=== PATIENT | female | born 1935 | race Caucasian/White ===

== ENCOUNTER → 2017-06-26 | Outpatient (CLI) | payer MEDICARE ==
--- NOTE | 2017-06-27 13:09 | BD ---
EXAMINATION TYPE: MG DEXA axial skeleton. DATE OF EXAM: 06/26/2017 COMPARISON: 2012 CLINICAL HISTORY: post menopausal Height: 4'11 06/19 Weight: 183 FRAX RISK QUESTIONS: Alcohol (3 or more units per day): no Family History (Parent hip fracture): no Glucocorticoids (More than 3mos): no (Ex: prednisone, prednisolone, methylprednisolone, dexamethasone, and hydrocortisone). History of Fracture in Adulthood: no Secondary Osteoporosis: 1. Type 1 Diabetes: no 2. Hyperthyroidism: no 3. Menopause before 45: yes 4. Malnutrition: no 5. 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 Bone mineral density as measured about the Lumbar spine is: ----- L1-L4(G/cm2): 1.276 T Score Values are as follows: ----- L2: 0.2 ----- L3: 1.7 ----- L4: 1.6 ----- L1-L4: 0.8 Bone mineral density has: Increased 9.5% since study of: 01/15/2013 Bone mineral density about the R hip (g/cm2): 0.811 Bone mineral density about the L hip (g/cm2): 0.895 T Score values are as follows: -----R Neck: -1.6 -----L Neck: -1.0 -----R Total:-0.7 -----L Total:0.2 Bone mineral density has: Increased 1.7% since study of: 01/15/2013 IMPRESSION: No evidence for osteoporosis or osteopenia. NOTE: T-SCORE=SD OF THE YOUNG ADULT MEAN.
== END ==
LOC: RADBDWWP 16:10
PROVIDERS: ATTEND Family Medicine
DX: Z78.0 Asymptomatic menopausal state (principal)
CPT/HCPCS: 77080

== ENCOUNTER → 2018-02-11 | Outpatient (CLI) | payer MEDICARE ==
--- NOTE | 2018-02-12 11:26 | CT ---
EXAMINATION TYPE: CT abdomen pelvis wo/w con DATE OF EXAM: 02/11/2018 COMPARISON: None INDICATION: Generalized pain DLP: 2155.5 mGycm, Automated exposure control for dose reduction was used. CONTRAST: 100 mL of Isovue 300. Study performed with Oral Contrast TECHNIQUE: Axial images were obtained from above the diaphragm to the pubic rami in the axial plane a t 5 mm thick sections. Reconstructed images are reviewed on the computer in the coronal plane. FINDINGS: Limited CT sections are obtained the lung bases. The lung bases are clear. There is a moderate size hiatal hernia contains contrast. CT ABDOMEN: Liver: Normal Spleen: Normal Pancreas: Moderately atrophic Adrenal glands: The adrenal glands are normal. Gallbladder: Surgically absent Kidneys: No masses are evident. No hydronephrosis is present. No cysts are present. Delayed images were obtained through the kidneys, which remain unremarkable. No renal stones are evident. Aorta: Vascular calcification is within the aorta. Inferior vena cava: Normal. Left renal vein is retroaortic. CT PELVIS: Loops of bowel within the abdomen and pelvis are normal. There are a few scattered diverticuli with in the colon. No acute diverticulitis is evident. There are loops of bowel which are incompletely di stended or lack oral contrast limiting their evaluation. Appendix: Normal as visualized. Urinary bladder: Normal. Genitourinary structures: Uterus is normal. Adnexal regions are clear. No free fluid is within the pe lvis. Osseous structures: No suspicious lytic or sclerotic lesions. Some facet hypertrophy is in the lower lumbar spine IMPRESSIONS: 1. Diverticulosis without acute diverticulitis. 2. Moderate size hiatal hernia.
== END | disposition home or self-care (01) ==
LOC: RADCTMAIN 17:05
PROVIDERS: ATTEND Family Medicine
DX: K57.30 Diverticulosis of large intestine without perforation or abscess without bleeding (principal); K44.9 Diaphragmatic hernia without obstruction or gangrene
CPT/HCPCS: 82565; 84520; 74178; 36415; Q9967

== ENCOUNTER → 2018-03-15 | Outpatient (CLI) | payer MEDICARE ==
--- NOTE | 2018-03-15 15:55 | US ---
EXAMINATION TYPE: US kidneys/renal and bladder DATE OF EXAM: COMPARISON: None CLINICAL HISTORY: N18.3 CKD. CKD--- Abnormal labs. No pain. EXAM MEASUREMENTS: Right Kidney: 10.7 x 3.8 x 4.6 cm Left Kidney: 9.0 x 4.9 x 5.7 cm Right Kidney: No hydronephrosis or masses seen Left Kidney: Cortical thinning. Appears smaller in size compared to contralateral kidney. Prominent pyramids. Bladder: distended, wnl as visualized Bilateral Jets seen IMPRESSION: 1. No suspicious acute changes renal ultrasound. 2. There appears to be some chronic changes within the left kidney with thinning of the cortex.
== END ==
LOC: RADUSWWP 12:42
PROVIDERS: ATTEND Internal Medicine
DX: N18.3 Chronic kidney disease, stage 3 (moderate) (principal)
CPT/HCPCS: 76770

== ENCOUNTER 2018-07-31 12:41 | Emergency (ER) | payer MEDICARE ==
[2018-07-31 13:03] LABS: Glucose,Whole Blood 234 mg/dL (75-99)
[2018-07-31] MEDS ORDERED: SODIUM CHLORIDE 0.9% 1,000 ML IV STA ×2 (13:19→14:54)
--- NOTE | 2018-07-31 14:18 | CT ---
EXAMINATION TYPE: CT brain wo con DATE OF EXAM: 07/31/2018 COMPARISON: None HISTORY: 82-year-old female weakness, Dizziness TECHNIQUE: Examination was done in axial plane without intravenous contrast. Coronal and sagittal r econstructions performed. CT DLP: 1056.4 mGycm Automated exposure control for dose reduction was used. FINDINGS: There is no evidence of acute intracranial hemorrhage, acute ischemic changes, mass, mass-effect, or extra-axial fluid collection. There is no effacement of cerebral sulci or basal subarachnoid cister ns. There is no hydrocephalus. There is no midline shift. Correa-white matter distinction is preserv ed. Leftward nasal septal deviation. Orbits and globes appear intact. Sinuses and mastoid air cells well pneumatized. Apical scarring calcifications within the bilateral carotid siphons. Benign basal ganglionic calcifications. Mild generalized supratentorial volume loss. IMPRESSION: Mild age-related atrophy. No acute intracranial abnormality seen.
--- NOTE | 2018-07-31 14:21 | XR ---
EXAMINATION TYPE: XR chest 2V DATE OF EXAM: 07/31/2018 COMPARISON: None HISTORY: 82-year-old female with weakness after fall TECHNIQUE: AP and lateral views FINDINGS: Heart upper limits of normal in size. Hazy densities project over the lungs from large patient body h abitus. No christofer consolidation, pneumothorax, or pleural effusion. IMPRESSION: Borderline heart size. No definite acute process.
[2018-07-31 14:33] LABS: Basophils % (A) 0 %; Eosinophils # (A) 0.1 k/uL (0-0.7); Eosinophils % (A) 2 %; HCT 36.3 % (34.0-46.0); HGB 12.1 gm/dL (11.4-16.0); Lymphocytes # (A) 1.2 k/uL (1.0-4.8); Lymphocytes % (A) 17 %; MCH 30.5 pg (25.0-35.0); MCHC 33.3 g/dL (31.0-37.0); MCV 91.6 fL (80.0-100.0); Mean Platelet Volume 7.7; Monocytes # (A) 0.3 k/uL (0-1.0); Monocytes % (A) 5 %; Neutrophils # (A) 4.9 k/uL (1.3-7.7); Neutrophils % (A) 74 %; Platelet Count 194 k/uL (150-450); RBC 3.97 m/uL (3.80-5.40); RDW 13.2 % (11.5-15.5); WBC 6.7 k/uL (3.8-10.6)
[2018-07-31 14:43] LABS: Calcium 9.7 mg/dL (8.4-10.2); Magnesium 1.3 mg/dL (1.6-2.3); Potassium 4.3 mmol/L (3.5-5.1); Total Bilirubin 0.9 mg/dL (0.2-1.3); Total Protein 6.6 g/dL (6.3-8.2)
[2018-07-31 14:48] LABS: INR 0.9 (<1.2); Partial Thromboplastin Time 22.9 sec (22.0-30.0); Prothrombin Time 10.2 sec (9.0-12.0)
[2018-07-31 14:51] LABS: Appearance,Urine Clear (Clear); Bilirubin,Urine Negative (Negative); Blood,Urine Negative (Negative); Color,Urine Yellow; Glucose,Urine (UA) Negative (Negative); Ketones,Urine Negative (Negative); Leukocyte Esterase,Urine Negative (Negative); Nitrite,Urine Negative (Negative); Protein,Urine Negative (Negative); Specific Gravity,Urine 1.011 (1.001-1.035)
--- NOTE | 2018-07-31 16:37 | ED ---
Weakness HPI - General Chief complaint: Weakness Stated complaint: fall,weak Time Seen by Provider: 07/31/18 13:02 Source: patient Mode of arrival: wheelchair Limitations: physical limitation - History of Present Illness Initial comments: Patient presents with generalized weakness. Nothing makes her symptoms better or worse. She has taken no medicines for this. She was not doing anything when she began to feel this way. She denies any belly or back pain. She has no chest pain or pressure. She has no nausea or vomiting. She has no trouble walking. - Related Data Home Medications Medication Instructions Recorded Confirmed Aspirin EC [Ecotrin Low Dose] 81 mg PO DAILY 07/31/18 07/31/18 Atorvastatin [Lipitor] 20 mg PO HS 07/31/18 07/31/18 Calcium Carbonate [Tums] 500 mg PO DAILY 07/31/18 07/31/18 Cholecalciferol [Vitamin D3] 1,000 unit PO DAILY 07/31/18 07/31/18 Febuxostat [Uloric] 40 mg PO DAILY 07/31/18 07/31/18 L.acidoph,Paracasei, B.lactis 1 cap PO DAILY 07/31/18 07/31/18 [Probiotic] Loperamide HCl [Imodium A-D] 2 - 4 mg PO DAILY PRN 07/31/18 07/31/18 Metoprolol Succinate (ER) [Toprol 50 mg PO DAILY 07/31/18 07/31/18 Xl] Multivit-Min36/Iron/Folic Acid 1 tab PO W/SUPPER 07/31/18 07/31/18 [Geritol Complete Tablet] Olmesartan Medoxomil [Benicar] 40 mg PO DAILY 07/31/18 07/31/18 Omeprazole/Sodium Bicarbonate 1 cap PO DAILY 07/31/18 07/31/18 [Zegerid 20 mg Capsule] Pioglitazone [Actos] 30 mg PO DAILY 07/31/18 07/31/18 Sertraline [Zoloft] 50 mg PO DAILY 07/31/18 07/31/18 Spironolact/Hydrochlorothiazid 1 tab PO DAILY 07/31/18 07/31/18 [Aldactazide 25-25 MG] amLODIPine [Norvasc] 5 mg PO DAILY 07/31/18 07/31/18 buPROPion XL [Wellbutrin Xl] 150 mg PO DAILY 07/31/18 07/31/18 cloNIDine 0.2 MG/24HR PATCH 1 patch TRANSDERM MO 07/31/18 07/31/18 [Catapres-TTS] glipiZIDE [Glucotrol] 10 mg PO AC-BID 07/31/18 07/31/18 metFORMIN HCL ER [Glucophage Xr] 500 mg PO BID 07/31/18 07/31/18 Allergies Allergy/AdvReac Type Severity Reaction Status Date / Time Iodine and Iodide Containing Allergy Swelling Verified 07/31/18 13:11 Produc hydrocodone AdvReac Nausea & Verified 07/31/18 13:11 Vomiting/HEADACHE naproxen AdvReac Nausea & Verified 07/31/18 13:11 Vomiting Review of Systems ROS Statement: Those systems with pertinent positive or pertinent negative responses have been documented in the HPI. ROS Other: All systems not noted in ROS Statement are negative. Past Medical History Past Medical History: Coronary Artery Disease (CAD), Diabetes Mellitus, GERD/ Reflux, Hyperlipidemia, Hypertension Additional Past Medical History / Comment(s): migraines History of Any Multi-Drug Resistant Organisms: None Reported Past Surgical History: Cholecystectomy Additional Past Surgical History / Comment(s): colon resection Past Psychological History: Depression Smoking Status: Never smoker Past Alcohol Use History: None Reported Past Drug Use History: None Reported General Exam Limitations: physical limitation General appearance: alert, in no apparent distress Head exam: Present: atraumatic, normocephalic, normal inspection Eye exam: Present: normal appearance, PERRL, EOMI. Absent: scleral icterus, conjunctival injection, periorbital swelling ENT exam: Present: normal exam, mucous membranes moist Neck exam: Present: normal inspection. Absent: tenderness, meningismus, lymphadenopathy Respiratory exam: Present: normal lung sounds bilaterally. Absent: respiratory distress, wheezes, rales, rhonchi, stridor Cardiovascular Exam: Present: regular rate, normal rhythm, normal heart sounds. Absent: systolic murmur, diastolic murmur, rubs, gallop, clicks GI/Abdominal exam: Present: soft, normal bowel sounds. Absent: distended, tenderness, guarding, rebound, rigid Extremities exam: Present: normal inspection, full ROM, normal capillary refill. Absent: tenderness, pedal edema, joint swelling, calf tenderness Back exam: Present: normal inspection Neurological exam: Present: alert, oriented X3, CN II-XII intact Psychiatric exam: Present: normal affect, normal mood Skin exam: Present: warm, dry, intact, normal color. Absent: rash Course Vital Signs 07/31/18 07/31/18 12:43 13:55 Temperature 99.0 F Pulse Rate 85 79 Respiratory 18 16 Rate Blood Pressure 146/81 162/70 O2 Sat by Pulse 95 95 Oximetry EKG Findings - EKG Comments: EKG Findings:: Twelve-lead EKG shows ventricular rate 80 bpm, normal MN interval and QRS complexes, no ST elevation or depression, interpreted by me as normal sinus rhythm. Medical Decision Making - Medical Decision Making Patient presents with weakness. Her BUN/creatinine and creatinine are slightly elevated. I gave her an IV fluid bolus. She is feeling much better. The rest of her labs are normal. Her imaging is all normal. Patient does not want to stay in the hospital. I can find no evidence of an emergency condition. She is going to follow-up with her own primary care doctor as an outpatient. - Lab Data Result diagrams: 07/31/18 13:50 07/31/18 13:50 Lab Results 07/31/18 07/31/18 07/31/18 Range/Units 13:01 13:50 13:50 WBC 6.7 (3.8-10.6) k/uL RBC 3.97 (3.80-5.40) m/uL Hgb 12.1 (11.4-16.0) gm/dL Hct 36.3 (34.0-46.0) % MCV 91.6 (80.0-100.0) fL MCH 30.5 (25.0-35.0) pg MCHC 33.3 (31.0-37.0) g/dL RDW 13.2 (11.5-15.5) % Plt Count 194 (150-450) k/uL Neutrophils % 74 % Lymphocytes % 17 % Monocytes % 5 % Eosinophils % 2 % Basophils % 0 % Neutrophils # 4.9 (1.3-7.7) k/uL Lymphocytes # 1.2 (1.0-4.8) k/uL Monocytes # 0.3 (0-1.0) k/uL Eosinophils # 0.1 (0-0.7) k/uL Basophils # 0.0 (0-0.2) k/uL PT (9.0-12.0) sec INR (<1.2) APTT (22.0-30.0) sec Sodium 139 (137-145) mmol/L Potassium 4.3 (3.5-5.1) mmol/L Chloride 100 (98-107) mmol/L Carbon Dioxide 27 (22-30) mmol/L Anion Gap 12 mmol/L BUN 23 H (7-17) mg/dL Creatinine 1.05 H (0.52-1.04) mg/dL Est GFR (CKD-EPI)AfAm 58 (>60 ml/min/1.73 sqM) Est GFR (CKD-EPI)NonAf 50 (>60 ml/min/1.73 sqM) Glucose 233 H (74-99) mg/dL POC Glucose (mg/dL) 234 H (75-99) mg/dL POC Glu Hydrometeorological Technician ID Lakisha Zamarripa Plasma Lactic Acid Nikolas (0.7-2.0) mmol/L Calcium 9.7 (8.4-10.2) mg/dL Magnesium 1.3 L (1.6-2.3) mg/dL Total Bilirubin 0.9 (0.2-1.3) mg/dL AST 37 H (14-36) U/L ALT 35 (9-52) U/L Alkaline Phosphatase 48 (38-126) U/L Troponin I (0.000-0.034) ng/mL NT-Pro-B Natriuret Pep pg/mL Total Protein 6.6 (6.3-8.2) g/dL Albumin 4.0 (3.5-5.0) g/dL TSH 2.300 (0.465-4.680) mIU/L Urine Color Urine Appearance (Clear) Urine pH (5.0-8.0) Ur Specific [place] (1.001-1.035) Urine Protein (Negative) Urine Glucose (UA) (Negative) Urine Ketones (Negative) Urine Blood (Negative) Urine Nitrite (Negative) Urine Bilirubin (Negative) Urine Urobilinogen (<2.0) mg/dL Ur Leukocyte Esterase (Negative) 07/31/18 07/31/18 07/31/18 Range/Units 13:50 13:50 13:50 WBC (3.8-10.6) k/uL RBC (3.80-5.40) m/uL Hgb (11.4-16.0) gm/dL Hct (34.0-46.0) % MCV (80.0-100.0) fL MCH (25.0-35.0) pg MCHC (31.0-37.0) g/dL RDW (11.5-15.5) % Plt Count (150-450) k/uL Neutrophils % % Lymphocytes % % Monocytes % % Eosinophils % % Basophils % % Neutrophils # (1.3-7.7) k/uL Lymphocytes # (1.0-4.8) k/uL Monocytes # (0-1.0) k/uL Eosinophils # (0-0.7) k/uL Basophils # (0-0.2) k/uL PT 10.2 (9.0-12.0) sec INR 0.9 (<1.2) APTT 22.9 (22.0-30.0) sec Sodium (137-145) mmol/L Potassium (3.5-5.1) mmol/L Chloride (98-107) mmol/L Carbon Dioxide (22-30) mmol/L Anion Gap mmol/L BUN (7-17) mg/dL Creatinine (0.52-1.04) mg/dL Est GFR (CKD-EPI)AfAm (>60 ml/min/1.73 sqM) Est GFR (CKD-EPI)NonAf (>60 ml/min/1.73 sqM) Glucose (74-99) mg/dL POC Glucose (mg/dL) (75-99) mg/dL POC Glu Hydrometeorological Technician ID Plasma Lactic Acid Nikolas 3.4 H* (0.7-2.0) mmol/L Calcium (8.4-10.2) mg/dL Magnesium (1.6-2.3) mg/dL Total Bilirubin (0.2-1.3) mg/dL AST (14-36) U/L ALT (9-52) U/L Alkaline Phosphatase (38-126) U/L Troponin I (0.000-0.034) ng/mL NT-Pro-B Natriuret Pep 231 pg/mL Total Protein (6.3-8.2) g/dL Albumin (3.5-5.0) g/dL TSH (0.465-4.680) mIU/L Urine Color Urine Appearance (Clear) Urine pH (5.0-8.0) Ur Specific [place] (1.001-1.035) Urine Protein (Negative) Urine Glucose (UA) (Negative) Urine Ketones (Negative) Urine Blood (Negative) Urine Nitrite (Negative) Urine Bilirubin (Negative) Urine Urobilinogen (<2.0) mg/dL Ur Leukocyte Esterase (Negative) 07/31/18 07/31/18 Range/Units 13:50 14:32 WBC (3.8-10.6) k/uL RBC (3.80-5.40) m/uL Hgb (11.4-16.0) gm/dL Hct (34.0-46.0) % MCV (80.0-100.0) fL MCH (25.0-35.0) pg MCHC (31.0-37.0) g/dL RDW (11.5-15.5) % Plt Count (150-450) k/uL Neutrophils % % Lymphocytes % % Monocytes % % Eosinophils % % Basophils % % Neutrophils # (1.3-7.7) k/uL Lymphocytes # (1.0-4.8) k/uL Monocytes # (0-1.0) k/uL Eosinophils # (0-0.7) k/uL Basophils # (0-0.2) k/uL PT (9.0-12.0) sec INR (<1.2) APTT (22.0-30.0) sec Sodium (137-145) mmol/L Potassium (3.5-5.1) mmol/L Chloride (98-107) mmol/L Carbon Dioxide (22-30) mmol/L Anion Gap mmol/L BUN (7-17) mg/dL Creatinine (0.52-1.04) mg/dL Est GFR (CKD-EPI)AfAm (>60 ml/min/1.73 sqM) Est GFR (CKD-EPI)NonAf (>60 ml/min/1.73 sqM) Glucose (74-99) mg/dL POC Glucose (mg/dL) (75-99) mg/dL POC Glu Hydrometeorological Technician ID Plasma Lactic Acid Nikolas (0.7-2.0) mmol/L Calcium (8.4-10.2) mg/dL Magnesium (1.6-2.3) mg/dL Total Bilirubin (0.2-1.3) mg/dL AST (14-36) U/L ALT (9-52) U/L Alkaline Phosphatase (38-126) U/L Troponin I <0.012 (0.000-0.034) ng/mL NT-Pro-B Natriuret Pep pg/mL Total Protein (6.3-8.2) g/dL Albumin (3.5-5.0) g/dL TSH (0.465-4.680) mIU/L Urine Color Yellow Urine Appearance Clear (Clear) Urine pH 7.0 (5.0-8.0) Ur Specific [place] 1.011 (1.001-1.035) Urine Protein Negative (Negative) Urine Glucose (UA) Negative (Negative) Urine Ketones Negative (Negative) Urine Blood Negative (Negative) Urine Nitrite Negative (Negative) Urine Bilirubin Negative (Negative) Urine Urobilinogen 3.0 (<2.0) mg/dL Ur Leukocyte Esterase Negative (Negative) Disposition Clinical Impression: Dehydration Disposition: HOME SELF-CARE Condition: Good Instructions (If sedation given, give patient instructions): Dehydration (ED) Is patient prescribed a controlled substance at d/c from ED?: No Referrals: Tad Patel MD [Primary Care Provider] - 1-2 days
[2018-07-31 16:57] VITALS: BP 158/62; PULSE 62; RESP 18; TEMP 98.6
== END 2018-07-31 16:57 | disposition home or self-care (01) ==
LOC: EC 12:41
DX: E86.0 Dehydration (principal); R79.89 Other specified abnormal findings of blood chemistry; R53.1 Weakness; E78.5 Hyperlipidemia, unspecified; I10 Essential (primary) hypertension; I25.10 Atherosclerotic heart disease of native coronary artery without angina pectoris; E11.9 Type 2 diabetes mellitus without complications; K21.9 Gastro-esophageal reflux disease without esophagitis; F32.9 Major depressive disorder, single episode, unspecified; Z88.5 Allergy status to narcotic agent; Z88.6 Allergy status to analgesic agent; Z88.8 Allergy status to other drugs, medicaments and biological substances; Z79.82 Long term (current) use of aspirin; Z79.84 Long term (current) use of oral hypoglycemic drugs; Z79.899 Other long term (current) drug therapy; Z90.49 Acquired absence of other specified parts of digestive tract
CPT/HCPCS: 36415; 70450; 71046; 80053; 81003; 83605; 83735; 83880; 84443; 84484; 85025; 85610; 85730; 93005; 96360; 96361; 99285

== ENCOUNTER → 2018-09-24 | Outpatient (CLI) | payer MEDICARE ==
--- NOTE | 2018-09-24 22:10 | MR ---
EXAMINATION TYPE: MR angio head wo con DATE OF EXAM: 09/24/2018 COMPARISON: CT brain July 31, 2018 HISTORY: Syncope, recent falls TECHNIQUE: Time of flight images focusing on the [place] of [place] were performed without contrast.. 2-D and 3-D postprocessing imaging is performed on the MRI scanner. FINDINGS: There is dominant right vertebral artery. Vertebral arteries are patent to basilar junction . There is small caliber but patent right posterior indicating artery. There is similar small caliber left posterior communicating artery. No significant stenosis or aneurysmal change is seen. Images of the anterior circulation show patent anterior communicating artery. There is no significant focal stenosis or aneurysmal change seen. IMPRESSION: No aneurysmal change at the level of the [place] of [place].
--- NOTE | 2018-09-24 22:13 | MR ---
EXAMINATION TYPE: MR brain wo con DATE OF EXAM: 09/24/2018 COMPARISON: CT brain July 31, 2018. HISTORY: Syncope, recent falls TECHNIQUE: Multiplanar, multisequence imaging of the brain and brainstem is performed without IV cont rast. FINDINGS: Diffusion weighted images demonstrate no evidence of a recent infarct or other diffusion abnormality. There is no worrisome extra-axial fluid collection. There is diffuse ventricular and sulcal prominenc e. There are scattered multifocal areas of T2 hyperintensity seen throughout the deep and periventric ular white matter. Lesions are nonspecific in appearance and distribution most likely an basis of chr onic the proximal vessel ischemic change in patient this age. Midline structures demonstrate normal morphology. The craniocervical junction appears within normal limits. Normal vascular flow voids are present. There is 8 mm mucous retention cyst or polyp in the a nterior lateral right sphenoid sinus otherwise paranasal sinuses are clear. Nasal septum is slightly deviated to left of midline. Both globes are intact. No suspicious opacification mastoid air cells is present. IMPRESSION: There is moderate diffuse cerebral atrophy and chronic small vessel ischemic change ident ified seen better on MRI versus recent CT.
== END | disposition home or self-care (01) ==
LOC: RADMRIMAIN 15:43
PROVIDERS: ATTEND Psychiatry & Neurology Neurology
DX: R55 Syncope and collapse (principal)
CPT/HCPCS: 70544; 70551

== ENCOUNTER → 2020-06-25 | Outpatient (CLI) | payer MEDICARE ==
--- NOTE | 2020-06-25 15:39 | MR ---
EXAMINATION TYPE: MR iac wo/w con DATE OF EXAM: 06/25/2020 COMPARISON: Prior MRI brain September 24, 2018. CT brain July 31, 2018 HISTORY: Balance issues. TECHNIQUE: Multiplanar, multisequence images of the brain and brainstem is performed without and with IV contras t, utilizing 7.5 mL intravenous Gadavist . Acoustic nerve disorder protocol. FINDINGS: Diffusion weighted images demonstrate no evidence of a recent infarct or other diffusion ab normality. There is no worrisome extra-axial fluid collection. Fairly moderate diffuse ventricular a nd sulcal prominence. Scattered focal and confluent areas of T2 hyperintensity are seen throughout th e superficial, deep, and periventricular white matter. Pontine involvement redemonstrated. Lesions ar e nonspecific in appearance and distribution. Nasal septum redemonstrated deviated to left of midline . Midline structures demonstrate normal morphology. The craniocervical junction appears within normal limits. Post contrast images demonstrate no abnormal enhancement. The dural venous sinuses appear pa tent. Small mucous retention cyst or polyp in the right anterior sphenoid sinus axial image 9 redemon strated. The visualized sinuses are otherwise clear and the globes are intact. No suspicious fluid signal mastoid air cells bilaterally. The vestibulocochlear complexes are symmetr ic and felt within normal limits. There is no suspicious enhancing mass identified bilaterally. IMPRESSION: Moderate diffuse cerebral atrophy and moderate to advanced chronic small vessel ischemic changes redemonstrated. No significant change from prior MRI. No suspicious cerebellopontine angle fi nding to account for patient's symptoms
== END | disposition home or self-care (01) ==
LOC: RADMRIMAIN 14:26
PROVIDERS: ATTEND Otolaryngology
DX: I67.82 Cerebral ischemia (principal); G31.1 Senile degeneration of brain, not elsewhere classified
CPT/HCPCS: 70553; A9585

== ENCOUNTER → 2020-07-14 | Outpatient (CLI) | payer MEDICARE ==
--- NOTE | 2020-07-14 14:39 | BD ---
EXAMINATION TYPE: Axial Bone Density DATE OF EXAM: 07/14/2020 COMPARISON: NONE CLINICAL HISTORY: Height: 5 FT 1 IN Weight: 174 FRAX RISK QUESTIONS: Alcohol (3 or more units per day): NO Family History (Parent hip fracture): NO Glucocorticoids (More than 3mos): NO (Ex: prednisone, prednisolone, methylprednisolone, dexamethasone, and hydrocortisone). History of Fracture in Adulthood: NO Secondary Osteoporosis: 1. Type 1 Diabetes: NO 2. Hyperthyroidism: NODULES 3. Menopause before 45: YES 4. Malnutrition: NO 5. Chronic liver disease: NO Rheumatoid Arthritis: YES Current Tobacco Use: NO RISK FACTORS HISTORY OF: Family History of Osteoporosis: NO Active: NO Diet low in dairy products/other sources of calcium: NO Postmenopausal woman: EARLY 40'S Take estrogen and/or progesterone medications: NONE Lost more than 2 inches in height since high school: YES Frequent falls: YES Poor Health: FAIR MEDICATIONS: Additional Medications: WELLBUTRIN, BLOOD PRESSURE MEDS, TYPE 2 DIABETIC MEDS, ACTOSE, HEART PATCH, Additional History: COLON RESSECTION, EXAM MEASUREMENTS: Bone mineral densitometry was performed using the [employer] System. Bone mineral density as measured about the Lumbar spine is: ----- L1-L4(G/cm2): 1.284 T Score Values are as follows: ----- L2: 0.0 ----- L3: 1.8 ----- L4: 1.2 ----- L1-L4: 0.9 Bone mineral density has: DECREASED -1.8 % since study of: 2018 Bone mineral density about the R hip (g/cm2): 0.771 Bone mineral density about the L hip (g/cm2): 0.831 T Score values are as follows: -----R Neck: -1.9 -----L Neck: -1.5 -----R Total: -1.4 -----L Total: -0.5 Bone mineral density has: DECREASED -9.3 % since study of: 2018 IMPRESSION: Osteopenia (T Score between -2.5 and -1). There is slightly increased risk of fracture and the patient may be considered for treatment. Re-Screen 2-5 years. NOTE: T-SCORE=SD OF THE YOUNG ADULT MEAN.
== END | disposition home or self-care (01) ==
LOC: RADBDWWP 13:55
PROVIDERS: ATTEND Family Medicine
DX: M85.80 Other specified disorders of bone density and structure, unspecified site (principal); Z78.0 Asymptomatic menopausal state
CPT/HCPCS: 77080

== ENCOUNTER 2020-08-14 10:40 | Emergency (ER) | payer MEDICARE ==
[2020-08-14 10:45] VITALS: BP 160/69; PULSE 54; RESP 16; TEMP 98
--- NOTE | 2020-08-14 11:03 | ED ---
Fall HPI - General Chief Complaint: Fall Stated Complaint: Fall/ankle/leg injury Time Seen by Provider: 08/14/20 10:46 Source: patient, RN notes reviewed Mode of arrival: wheelchair Limitations: no limitations - History of Present Illness Initial Comments: 10-year-old female presents emergency Department chief complaint of right leg pain. Patient states she's had a few falls last few days states that it's always when she tries hematuria, she has difficulty lifting her leg so she slipped. Patient states is chronic for her. Patient went of right knee pain, right ankle pain patient states that she sprain old walking boot which is help. No paresthesias no head injury no loss conscious. Patient does take an aspirin no other blood thinners. - Related Data Home Medications Medication Instructions Recorded Confirmed Aspirin EC [Ecotrin Low Dose] 81 mg PO DAILY 07/31/18 07/31/18 Atorvastatin [Lipitor] 20 mg PO HS 07/31/18 07/31/18 Calcium Carbonate [Tums] 500 mg PO DAILY 07/31/18 07/31/18 Cholecalciferol [Vitamin D3] 1,000 unit PO DAILY 07/31/18 07/31/18 Febuxostat [Uloric] 40 mg PO DAILY 07/31/18 07/31/18 L.acidoph,Paracasei, B.lactis 1 cap PO DAILY 07/31/18 07/31/18 [Probiotic] Loperamide HCl [Imodium A-D] 2 - 4 mg PO DAILY PRN 07/31/18 07/31/18 Metoprolol Succinate (ER) [Toprol 50 mg PO DAILY 07/31/18 07/31/18 Xl] Multivit-Min36/Iron/Folic Acid 1 tab PO W/SUPPER 07/31/18 07/31/18 [Geritol Complete Tablet] Olmesartan Medoxomil [Benicar] 40 mg PO DAILY 07/31/18 07/31/18 Omeprazole/Sodium Bicarbonate 1 cap PO DAILY 07/31/18 07/31/18 [Zegerid 20 mg Capsule] Pioglitazone [Actos] 30 mg PO DAILY 07/31/18 07/31/18 Sertraline [Zoloft] 50 mg PO DAILY 07/31/18 07/31/18 Spironolact/Hydrochlorothiazid 1 tab PO DAILY 07/31/18 07/31/18 [Aldactazide 25-25 MG] amLODIPine [Norvasc] 5 mg PO DAILY 07/31/18 07/31/18 buPROPion XL [Wellbutrin Xl] 150 mg PO DAILY 07/31/18 07/31/18 cloNIDine 0.2 MG/24HR PATCH 1 patch TRANSDERM MO 07/31/18 07/31/18 [Catapres-TTS] glipiZIDE [Glucotrol] 10 mg PO AC-BID 07/31/18 07/31/18 metFORMIN HCL ER [Glucophage Xr] 500 mg PO BID 07/31/18 07/31/18 Allergies Allergy/AdvReac Type Severity Reaction Status Date / Time Iodine and Iodide Containing Allergy Swelling Verified 08/14/20 10:45 Produc hydrocodone AdvReac Nausea & Verified 08/14/20 10:45 Vomiting/HEADACHE naproxen AdvReac Nausea & Verified 08/14/20 10:45 Vomiting Review of Systems ROS Statement: Those systems with pertinent positive or pertinent negative responses have been documented in the HPI. ROS Other: All systems not noted in ROS Statement are negative. Past Medical History Past Medical History: Coronary Artery Disease (CAD), Diabetes Mellitus, GERD/Reflux, Hyperlipidemia, Hypertension Additional Past Medical History / Comment(s): migraines History of Any Multi-Drug Resistant Organisms: None Reported Past Surgical History: Cholecystectomy Additional Past Surgical History / Comment(s): colon resection Past Psychological History: Depression Smoking Status: Never smoker Past Alcohol Use History: None Reported Past Drug Use History: None Reported General Exam Limitations: no limitations General appearance: alert, in no apparent distress Head exam: Present: atraumatic, normocephalic, normal inspection Neck exam: Present: normal inspection. Absent: tenderness, meningismus, lymphadenopathy Respiratory exam: Present: normal lung sounds bilaterally. Absent: respiratory distress, wheezes, rales, rhonchi, stridor Cardiovascular Exam: Present: regular rate, normal rhythm, normal heart sounds. Absent: systolic murmur, diastolic murmur, rubs, gallop, clicks Extremities exam: Present: other (Right knee there is moderate tenderness there is no significant swelling, neurovascular intact right leg there is moderate swelling of the right ankle with diffuse tenderness no distal foot tenderness.) Neurological exam: Present: alert, oriented X3 Skin exam: Present: warm, dry, intact, normal color. Absent: rash Course Vital Signs 08/14/20 10:42 Temperature 98 F Pulse Rate 54 L Respiratory 16 Rate Blood Pressure 160/69 O2 Sat by Pulse 97 Oximetry Medical Decision Making - Medical Decision Making 84-year-old female presented for ankle knee pain. X-rays reviewed. Patient has a right distal fibular fracture. Patient declines pain meds in the emergency department. Patient will be discharged with pain meds, and patient was placed in her walking boot she is advised to use her walker to remain essentially nonweightbearing until follow-up with orthopedics and return for any worsening change in symptoms Disposition Clinical Impression: Fall, Closed fracture of right distal fibula Disposition: HOME SELF-CARE Condition: Stable Instructions (If sedation given, give patient instructions): Ankle Fracture (ED) Additional Instructions: Please return to the Emergency Department if symptoms worsen or any other concerns. Is patient prescribed a controlled substance at d/c from ED?: No Referrals: Tad Patel MD [Primary Care Provider] - 1-2 days Armin Varma MD [STAFF PHYSICIAN] - 1-2 days Time of Disposition: 11:41
--- NOTE | 2020-08-14 11:21 | XR ---
EXAMINATION TYPE: XR knee complete RT DATE OF EXAM: 08/14/2020 CLINICAL HISTORY: Fall injury with pain TECHNIQUE: Three views of the right knee are obtained. COMPARISON: None. FINDINGS: Osseous structures are demineralized. There is no acute fracture/dislocation evident in ri ght knee. Moderate narrowing lateral tibiofemoral compartment. Mild to moderate narrowing and mild t o minimal spurring patellofemoral compartment. Large spur anterior superior patellar distal quadricep s tendon attachment. Increased density suprapatellar bursa consistent with small to moderate joint ef fusion. Moderate to severe posterior vascular arterial calcification. IMPRESSION: There is no acute fracture or dislocation in the right knee.
--- NOTE | 2020-08-14 11:23 | XR ---
EXAMINATION TYPE: XR ankle complete RT DATE OF EXAM: 08/14/2020 CLINICAL HISTORY: Fall injury with pain. TECHNIQUE: Frontal, lateral and oblique images of the right ankle are obtained. COMPARISON: None. FINDINGS: Osseous structures are demineralized. There is acute oblique intra-articular fracture throu gh the lateral malleolus with slight lateral displacement and distraction. Posterior and medial malle olus are intact. Ankle mortise symmetry is slightly narrowed laterally. Incidental moderate sized vinod caneal spurs. Mild to moderate diffuse subcutaneous edema with arteriovascular calcification. IMPRESSION: There is acute oblique mildly displaced intra-articular fracture lateral malleolus Myers B type. (Initial encounter closed type posttraumatic fracture)
[2020-08-14] MEDS ORDERED: ACET/COD 300 MG/30 MG STARTER PACK 6 TAB BTL PO STA (11:42)
== END 2020-08-14 12:04 | disposition home or self-care (01) ==
LOC: EC 10:40
DX: S82.831A Other fracture of upper and lower end of right fibula, initial encounter for closed fracture (principal); F32.9 Major depressive disorder, single episode, unspecified; E11.9 Type 2 diabetes mellitus without complications; K21.9 Gastro-esophageal reflux disease without esophagitis; E78.5 Hyperlipidemia, unspecified; I10 Essential (primary) hypertension; I25.10 Atherosclerotic heart disease of native coronary artery without angina pectoris; Z79.84 Long term (current) use of oral hypoglycemic drugs; Z79.82 Long term (current) use of aspirin; Z79.899 Other long term (current) drug therapy; Z88.5 Allergy status to narcotic agent; Z88.6 Allergy status to analgesic agent; Z91.041 Radiographic dye allergy status; Z90.49 Acquired absence of other specified parts of digestive tract; W01.0XXA Fall on same level from slipping, tripping and stumbling without subsequent striking against object, initial encounter
CPT/HCPCS: 99283

== ENCOUNTER 2020-08-26 10:49 | Day surgery (SDC) | payer MEDICARE ==
[2020-08-20 16:06] VITALS: BMI 33.0
[~2020-08-26 10:49] MED LIST: DEXAMETHASONE SOD PHOSPHATE 4 MG/ML 1 ML VIAL IV ONE; LACTATED RINGERS 1,000 ML IV SCH; LIDOCAINE 1% (10MG/ML) FOR IV START INTRADERMA PRN; ONDANSETRON 4 MG/2 ML VIAL IVP ONE
[2020-08-26 11:46] LABS: Glucose,Whole Blood 213 mg/dL (75-99)
[2020-08-26] MEDS ORDERED: ONDANSETRON 4 MG/2 ML VIAL ONE (11:50)
[2020-08-26] MEDS ORDERED: INSULIN ASPART (NovoLOG) 100 UNIT/ML VIAL SQ ONE (11:55)
[2020-08-26 12:13] LABS: Glucose,Whole Blood 211 mg/dL (75-99)
[2020-08-26] MEDS ORDERED: ePHEDrine SULFATE/0.9% NACL/PF 50 MG/5 ML SYRINGE IV ONE (12:51)
[2020-08-26] MEDS ORDERED: PROPOFOL 10 MG/ML 20 ML VIAL IV ONE (12:51)
[2020-08-26] MEDS ORDERED: fentaNYL (PF) 50 MCG/ML 2 ML AMP ONE (12:51)
[2020-08-26] MEDS ORDERED: MIDAZOLAM 2 MG/2 ML VIAL ONE (12:51)
[2020-08-26] MEDS ORDERED: SUCCINYLCHOLINE CHLORIDE 100 MG/5 ML SYR IV ONE (12:51)
[2020-08-26] MEDS ORDERED: LIDOCAINE 1% INJ 10MG/ML (20 ML MDV) ONE (12:51)
[2020-08-26] MEDS ORDERED: BUPIVACAINE (PF) 0.25% 30 ML VIAL MISCELLANE ONE (13:19)
[2020-08-26 14:24] VITALS: TEMP 96.8
[2020-08-26 14:31] LABS: Glucose,Whole Blood 163 mg/dL (75-99)
[2020-08-26 15:28] VITALS: RESP 20
[2020-08-26] MEDS ORDERED: HYDROcodone/APAP 5-325MG 1 EACH TAB ONE (15:30)
[2020-08-26] MEDS ORDERED: HYDROcodone/APAP 5-325MG 1 EACH TAB PO ONE (15:33)
[2020-08-26 16:12] VITALS: BP 172/55; PULSE 70
--- NOTE | 2020-08-26 16:41 | XR ---
EXAMINATION TYPE: XR ankle limited RT, FL guidance operating room DATE OF EXAM: 08/26/2020 COMPARISON: NONE HISTORY: 84-year-old female hardware placement FINDINGS: Intraoperative fluoroscopy during late and screw fixation of the distal fibula. FLUOROSCOPY Fluoroscopy time of 1 minute 39 seconds was used during distal fibular internal fixation. 1 image/s document/s the procedure. IMPRESSION: Intraoperative fluoroscopy as above.
--- NOTE | 2020-09-07 13:52 | OP ---
OPERATIVE REPORT DATE OF SURGERY: August 26, 2020. PREOPERATIVE DIAGNOSIS: Displaced lateral malleolar fracture, right ankle. POSTOPERATIVE DIAGNOSIS: Displaced lateral malleolar fracture, right ankle. PROCEDURE: Open reduction with internal fixation of right lateral malleolar fracture. SURGEON: Blaine Taylor DPM. ANESTHESIA: General with preoperative nerve block. HEMOSTASIS: Right thigh tourniquet at 250 mmHg. ESTIMATED BLOOD LOSS: Minimal. MATERIALS: One Arthrex FibuLock nail with associated screws. INJECTABLES: None. SPECIMENS: None. COMPLICATIONS: None. OPERATIVE REPORT IS FOLLOWS: Prior to the patient being brought to the operating room, Anesthesia administered a nerve block in the right lower extremity utilizing ultrasound guidance and under mild sedation. Then the patient was brought into the operating room and placed on the table in supine position. Timeout was taken to confirm correct patient identifiers, correct site of surgery and correct procedure. When the room was in agreement, the patient was then placed under general anesthetic. A well-padded tourniquet was placed on the right thigh. A bump was placed underneath the right hip to internally rotate the right leg and then the right leg was prepped and draped in usual manner. The leg was exsanguinated with an Esmarch bandage. The knee slightly flexed and the tourniquet inflated to 250 mmHg. Fluoroscopy was used to identify the level of the fracture. Bone reduction forceps were used percutaneously to rotate and bring the fracture back out to length and allow for proper realignment. Once the fracture was properly aligned, another small incision was made at the tip of the lateral malleolus. Under direct fluoroscopic visualization, a guidewire was inserted at the tip of lateral malleolus and inserted into the medullary canal. Once it was at appropriate depth, the large reamer was then used for the distal portion and then the flexible reamer used for the medullary canal. Those were removed and the guidewire was left in place and then the Arthrex FibuLock nail was inserted and gently impacted to proper depth as noted with the boundaries on the jig that was attached to the nail. Once that was in place, a guidewire was placed through the jig and into the fibula to lock in place so it did not rotate. The miniature train driver was then used to deploy the talons on the superior aspect of the nail to lock it into place in the fibula and then utilizing the jig, the drill guide was then placed through the appropriate holes. Small stab incisions were made through the skin. The drill holes were then made and then the screws inserted through the jig that also passed through the nail to lock it in place. Fluoroscopic imaging showed proper placement of all hardware with maintained reduction of the fracture. All wounds were irrigated with antibiotic saline and closed with stainless steel preet. A nonadherent gauze applied was applied over the incisions and then a dry dressing was applied to the right ankle. The tourniquet was released and capillary refill returned to all digits of the right foot. The patient was then placed in a well-padded well- molded posterior mold sugar-tong splint. Anesthesia was reversed and she was taken to recovery with vital signs stable. MMSALLYL / LILLIANN: [id number] /
== END 2020-08-26 16:45 | disposition home or self-care (01) ==
LOC: OR 10:49
PROVIDERS: ATTEND Podiatrist
DX: S82.61XA Displaced fracture of lateral malleolus of right fibula, initial encounter for closed fracture (principal); W18.39XA Other fall on same level, initial encounter; I10 Essential (primary) hypertension; E11.9 Type 2 diabetes mellitus without complications; H91.90 Unspecified hearing loss, unspecified ear; F32.9 Major depressive disorder, single episode, unspecified; R26.81 Unsteadiness on feet; Z97.3 Presence of spectacles and contact lenses; I12.9 Hypertensive chronic kidney disease with stage 1 through stage 4 chronic kidney disease, or unspecified chronic kidney disease; E11.22 Type 2 diabetes mellitus with diabetic chronic kidney disease; N18.30 Chronic kidney disease, stage 3 unspecified; E78.2 Mixed hyperlipidemia; Z85.828 Personal history of other malignant neoplasm of skin; M10.9 Gout, unspecified; K21.9 Gastro-esophageal reflux disease without esophagitis; G20 Parkinson's disease; M54.5 Low back pain; M19.90 Unspecified osteoarthritis, unspecified site; E66.9 Obesity, unspecified; Z68.33 Body mass index [BMI] 33.0-33.9, adult; D50.9 Iron deficiency anemia, unspecified; G47.30 Sleep apnea, unspecified; G47.00 Insomnia, unspecified; Z83.3 Family history of diabetes mellitus; Z82.49 Family history of ischemic heart disease and other diseases of the circulatory system; Z79.84 Long term (current) use of oral hypoglycemic drugs; Z79.82 Long term (current) use of aspirin; Z79.899 Other long term (current) drug therapy; Z88.5 Allergy status to narcotic agent; Z88.8 Allergy status to other drugs, medicaments and biological substances; Z91.048 Other nonmedicinal substance allergy status
CPT/HCPCS: 84132; 73600; 27792; C1713 ×2; J2250; J1100; J0690; J2405; J2001; J3010; J0330; J2704

== ENCOUNTER → 2020-10-19 | Outpatient (CLI) | payer MEDICARE ==
--- NOTE | 2020-10-19 13:02 | US ---
EXAMINATION TYPE: US thyroid st tissue head/neck DATE OF EXAM: 10/19/2020 COMPARISON: US 2016 CLINICAL HISTORY: E04.2 Nontoxic multinodular goiter. F/U previous, pt has no complaints at this time GLAND SIZE: Right Lobe: 4.6 x 1.9 x 1.2 cm Overall Parenchyma: heterogenous Left Lobe: 4.8 x 2.3 x 1.6 cm Overall Parenchyma: heterogeneous Isthmus Thickness: 0.6 cm NODULES RIGHT: # of nodules measured on right: 1 1. 0.7 X 0.6 x 0.7 cm, mid medial, solid or almost completely solid, hypoechoic nodule, which is wi kaveh than tall, with smooth margins, without echogenic foci. Prior size: 0.6 x 0.3 x 0.6 cm LEFT: # of nodules measured on left: 2 1. 2.1 X 1.7 x 2.1 cm, lower, solid or almost completely solid, hypoechoic nodule, which is wider t spivey tall, with smooth margins, without echogenic foci. Prior size: 2.1 x 1.6 x 2.1 cm 2. 0.9 X 0.7 x 0.9 cm, mid, cystic or almost completely cystic, anechoic nodule, which is wider th an tall, with smooth margins, without echogenic foci. Prior size: 0.7 x 0.5 x 0.7 cm Bilateral neck scanned, no evidence of lymphadenopathy. IMPRESSION: Stable nodules bilaterally, multiple sub-centimeter colloid cysts scattered throughout, largest cyst measured.
== END | disposition home or self-care (01) ==
LOC: RADUSWWP 12:30
PROVIDERS: ATTEND Internal Medicine Endocrinology, Diabetes & Metabolism
DX: E04.2 Nontoxic multinodular goiter (principal)
CPT/HCPCS: 76536

== ENCOUNTER → 2020-10-19 | Outpatient (CLI) | payer MEDICARE ==
[2020-10-19 21:41] LABS: Hemoglobin A1C 7.2 % (4.0-6.0)
[2020-10-19 23:56] LABS: Urine Creatinine 95.6 mg/dL
[2020-10-20 01:56] LABS: African American GFR (CKD) 43.9 (60.0-200.0); Albumin 4.5 g/dL (3.80-4.90); Albumin/Globulin Ratio 1.96 (1.60-3.17); Anion Gap 20.5 mmol/L (4.00-12.00); BUN/Creat Ratio 20.77 Ratio (12.00-20.00); Carbon Dioxide 19.5 mmol/L (21.6-31.8); Chol/HDL Ratio 2.92; Globulin 2.3 g/dL (1.6-3.3); LDL Cholesterol,Calculated 69.2 mg/dL (0.0-131.0); Non-African American GFR(CKD) 37.9 (60.0-200.0); Potassium 4.3 mmol/L (3.5-5.5); Total Bilirubin 0.6 mg/dL (0.3-1.2); Total Protein 6.8 g/dL (6.2-8.2); VLDL Calculation 24.8 mg/dL (5.00-40.00)
== END | disposition home or self-care (01) ==
LOC: LABWHC1 09:55
PROVIDERS: ATTEND Internal Medicine Endocrinology, Diabetes & Metabolism
DX: E11.65 Type 2 diabetes mellitus with hyperglycemia (principal)
CPT/HCPCS: 36415; 80053; 80061; 82043; 82570; 83036; 84443

== ENCOUNTER 2021-04-13 14:50 | Emergency (ER) | payer MEDICARE ==
[2021-04-13 15:45] VITALS: BP 169/59; PULSE 60; RESP 20; TEMP 98.5
--- NOTE | 2021-04-13 16:19 | CT ---
EXAMINATION TYPE: CT brain julio rowe DATE OF EXAM: 04/13/2021 COMPARISON: 07/31/2018 HISTORY: Fall CT DLP: 1323.[address] of the brain was performed. The ventricles, basal cisterns and sulci overlying the cerebral convexities demonstrate mild enlargem ent. There is no evidence for intracranial hemorrhage or sulcal effacement. There is decreased attenuatio n about the periventricular white matter and deep white matter of both cerebral hemispheres, compatib le with chronic small vessel ischemia. No mass effects are seen. If symptoms persist consider MRI. Osseous calvarium is intact. Left parietal-occipital scalp hematoma. IMPRESSION: 1. Age related atrophic and chronic small vessel ischemic change without acute intracranial process seen at this time. CT Cervical Spine: Unenhanced CT of the cervical spine was performed with bone and soft tissue window settings submitted . Coronal and sagittal reconstruction is obtained. There is normal alignment and prevertebral soft tissues. No evidence for acute cervical fracture . Scattered degenerative disc disease and spondylosis. Biapical scarring. IMPRESSION: 1. No evidence for acute fracture or subluxation of the cervical spine.
--- NOTE | 2021-04-13 18:14 | ED ---
General Adult HPI - General Chief complaint: Fall Stated complaint: Fall/head & rib pain Time Seen by Provider: 04/13/21 18:01 Source: patient Mode of arrival: ambulatory Limitations: no limitations - History of Present Illness Initial comments: 85-year-old female presents to the emergency department accompanied by her and daughter, for evaluation of head injury status post fall. Patient states her legs gave out while at the grocery store today causing her to fall and hit her head on a shelf. Family states that it occurred around 2:00 today. Patient denies loss of consciousness. States her assisted her to stand and she was able to ambulate out of the store. Patient reports a history of multiple falls and recently saw a neurologist for this issue. States she is supposed to be ambulating using a walker, but did not do so today. Denies fever, chills, headache, dizziness, chest pain, rib pain, shortness of breath or difficulty breathing. - Related Data Home Medications Medication Instructions Recorded Confirmed Aspirin EC [Ecotrin Low Dose] 81 mg PO DAILY 07/31/18 08/26/20 Atorvastatin [Lipitor] 20 mg PO HS 07/31/18 08/26/20 Cholecalciferol [Vitamin D3] 1,000 unit PO DAILY 07/31/18 08/26/20 Febuxostat [Uloric] 40 mg PO DAILY 07/31/18 08/26/20 L.acidoph,Paracasei, B.lactis 1 cap PO DAILY 07/31/18 08/26/20 [Probiotic] Loperamide HCl [Imodium A-D] 2 - 4 mg PO DAILY PRN 07/31/18 08/26/20 Metoprolol Succinate (ER) [Toprol 50 mg PO DAILY 07/31/18 08/20/20 Xl] Omeprazole/Sodium Bicarbonate 1 cap PO BID 07/31/18 08/26/20 [Zegerid 20 mg Capsule] Spironolact/Hydrochlorothiazid 1 tab PO DAILY 07/31/18 08/26/20 [Aldactazide 25-25 MG] amLODIPine [Norvasc] 5 mg PO DAILY 07/31/18 08/20/20 buPROPion XL [Wellbutrin Xl] 150 mg PO DAILY 07/31/18 08/26/20 cloNIDine 0.2 MG/24HR PATCH 1 patch TRANSDERM MO 07/31/18 08/20/20 [Catapres-TTS] glipiZIDE [Glucotrol] 10 mg PO AC-BID 07/31/18 08/26/20 Carbidopa-Levodopa(Unk-Dose) 1 tab PO QID 08/20/20 08/26/20 Losartan Potassium 100 mg PO TID PRN 08/20/20 08/20/20 Pioglitazone [Actos] 45 mg PO DAILY 08/20/20 08/26/20 Sertraline [Zoloft] 100 mg PO DAILY 08/20/20 08/26/20 Previous Rx's Medication Instructions Recorded HYDROcodone/APAP 5-325MG [[place] 1 tab PO Q6HR PRN 7 Days #20 tab 08/26/20 5-325] Allergies Allergy/AdvReac Type Severity Reaction Status Date / Time Iodine and Iodide Containing Allergy Swelling Verified 04/13/21 15:45 Produc metformin AdvReac Unknown Diarrhea Verified 04/13/21 15:45 naproxen AdvReac Nausea & Verified 04/13/21 15:45 Vomiting Review of Systems ROS Statement: Those systems with pertinent positive or pertinent negative responses have been documented in the HPI. ROS Other: All systems not noted in ROS Statement are negative. Past Medical History Past Medical History: Asthma, Coronary Artery Disease (CAD), Diabetes Mellitus, GERD/Reflux, Hyperlipidemia, Hypertension, Osteoarthritis (OA) Additional Past Medical History / Comment(s): hx asthma (no current meds), back pain, gout, states she falls alot- dr checking for parkinsons, states shakey hands & feet., anemia, urine leakage-wears depends., diverticulitis with bowel resection, hx polyps., states dizziness when she falls., fell 08/12/20 and fx right ankle-wearing a boot and using a wheelchair. History of Any Multi-Drug Resistant Organisms: None Reported Past Surgical History: Cholecystectomy Additional Past Surgical History / Comment(s): colon resection for diverticulitis, fistula (stool in urine) Past Anesthesia/Blood Transfusion Reactions: No Reported Reaction Additional Past Anesthesia/Blood Transfusion Reaction / Comment(s): states dizziness when she falls Past Psychological History: Depression Smoking Status: Never smoker Past Alcohol Use History: Rare Past Drug Use History: None Reported - Past Family History Sister(s) Family Medical History: Cancer Additional Family Medical History / Comment(s): 3 sisters with breast cancer Daughter(s) Family Medical History: CVA/TIA Son(s) Additional Family Medical History / Comment(s): son from heart problems General Exam Limitations: no limitations (Well-developed) General appearance: alert, in no apparent distress Head exam: Present: other (Hematoma measuring 4 cm in diameter on left parietal/occipital area of the scalp) Eye exam: Present: normal appearance, PERRL, EOMI. Absent: scleral icterus, conjunctival injection, nystagmus, periorbital swelling Pupils: Present: normal accommodation ENT exam: Present: normal exam, normal oropharynx, mucous membranes moist, TM's normal bilaterally, normal external ear exam Neck exam: Present: normal inspection, full ROM. Absent: tenderness, meningismus, lymphadenopathy Respiratory exam: Present: normal lung sounds bilaterally. Absent: respiratory distress, wheezes, rales, rhonchi, stridor Cardiovascular Exam: Present: regular rate, normal rhythm, normal heart sounds. Absent: systolic murmur, diastolic murmur, rubs, gallop, clicks GI/Abdominal exam: Present: soft, normal bowel sounds. Absent: distended, tenderness, guarding, rebound, rigid Back exam: Present: normal inspection, full ROM. Absent: tenderness, muscle spasm, paraspinal tenderness, vertebral tenderness Neurological exam: Present: alert, oriented X3, CN II-XII intact Expanded Patient oriented to: Present: person, place, time Speech: Present: fluid speech Cerebellar function: Finger to Nose: Normal Motor strength exam: RUE: 5, LUE: 5, RLE: 5, LLE: 5 Eye Response: (4) open spontaneously Motor Response: (6) obeys commands Verbal Response: (5) oriented Psychiatric exam: Present: normal affect, normal mood Skin exam: Present: warm, dry, intact, normal color. Absent: rash Course Vital Signs 04/13/21 15:42 Temperature 98.5 F Pulse Rate 60 Respiratory 20 Rate Blood Pressure 169/59 O2 Sat by Pulse 96 Oximetry Medical Decision Making - Medical Decision Making 85-year-old female with a history of type 2 diabetes and multiple falls is evaluated status post fall. Upon physical exam, hematoma is noted to the left parietal/occipital area of the scalp. Tenderness upon palpation. Neurologic exam is intact; no loss of consciousness. No additional areas of pain or tenderness. Patient is awake and alert and able to articulate details of the e vent. CTs of the head and C-spine were obtained showing no acute changes. Discussed follow-up care, fall prevention, and home safety at length. Patient was instructed to follow up with her primary care provider for recheck in the next 1-2 days. Return parameters were discussed in detail with patient and family; they verbalize understanding and agree with this plan. This patient's care was discussed with my attending Dr Malave. - Radiology Data Radiology results: report reviewed, image reviewed CT of the brain and C-spine without contrast was obtained. Impression per Dr. Monique is age-related atrophic and chronic small vessel ischemic change without acute intracranial process seen at this time. No evidence for acute fracture or subluxation of the cervical spine. Disposition Clinical Impression: Hematoma of scalp, Fall Disposition: HOME SELF-CARE Condition: Stable Instructions (If sedation given, give patient instructions): Fall Prevention for Older Adults (ED), Head Injury (ED) Additional Instructions: Continue using ambulatory devices as directed. Follow-up with your primary care provider for further evaluation and treatment. Return to the emergency department with any new, worsening, or concerning symptoms. Is patient prescribed a controlled substance at d/c from ED?: No Referrals: Tad Patel MD [Primary Care Provider] - 1-2 days Time of Disposition: 19:06
== END 2021-04-13 19:13 | disposition home or self-care (01) ==
LOC: EC 14:50
DX: S00.03XA Contusion of scalp, initial encounter (principal); J45.909 Unspecified asthma, uncomplicated; I25.10 Atherosclerotic heart disease of native coronary artery without angina pectoris; E11.9 Type 2 diabetes mellitus without complications; K21.9 Gastro-esophageal reflux disease without esophagitis; E78.5 Hyperlipidemia, unspecified; I10 Essential (primary) hypertension; M19.90 Unspecified osteoarthritis, unspecified site; F32.9 Major depressive disorder, single episode, unspecified; Z79.82 Long term (current) use of aspirin; Z88.5 Allergy status to narcotic agent; Z90.49 Acquired absence of other specified parts of digestive tract; W01.10XA Fall on same level from slipping, tripping and stumbling with subsequent striking against unspecified object, initial encounter
CPT/HCPCS: 70450; 72125; 99283

== ENCOUNTER 2021-12-27 14:07 | Emergency (ER) | payer MEDICARE ==
[2021-12-27 14:16] VITALS: RESP 18; TEMP 97.9
[2021-12-27 14:19] LABS: Glucose,Whole Blood 296 mg/dL (70-110)
[2021-12-27] MEDS ORDERED: SODIUM CHLORIDE 0.9% 1,000 ML IV STA (15:13)
--- NOTE | 2021-12-27 15:29 | ED ---
General Adult HPI - General Chief complaint: Weakness Stated complaint: Hyperglycemia,Vomiting,Weakness Time Seen by Provider: 12/27/21 15:09 Source: patient, family Mode of arrival: ambulatory Limitations: no limitations - History of Present Illness Initial comments: Dictation was produced using [employer] dictation software. please excuse any grammatical, word or spelling errors. Chief Complaint: 86-year-old female presents to the emergency department for elevated blood sugar and prandial epigastric pain History of Present Illness: 86-year-old female for the last several days she is complaining of elevated blood sugars. Patient according to recently was started on new anti-hyperglycemic medications. She does report accompanying nausea and weakness. Patient has no pain complaints patient multiple comorbidities and takes multiple locations. Patient states that she is nauseated but not vomiting. She does report prandial epigastric burning. She was told that she has a hiatal hernia. She has seen a GI doctor in the past. States she is here for both of those complaints. Patient not having any active epigastric symptoms at this time. The ROS documented in this emergency department record has been reviewed and confirmed by me. Those systems with pertinent positive or negative responses have been documented in the HPI. All other systems are other negative and/or noncontributory. PHYSICAL EXAM: General Impression: Alert and oriented x3, not in acute distress HEENT: Normocephalic atraumatic, extra-ocular movements intact, pupils equal and reactive to light bilaterally, mucous membranes moist. Cardiovascular: Heart regular rate and rhythm Chest: Able to complete full sentences, no retractions, no tachypnea Abdomen: abdomen soft, non-tender, non-distended, no organomegaly Musculoskeletal: Pulses present and equal in all extremities, no peripheral edema Motor: no focal deficits noted Neurological: CN II-XII grossly intact, no focal motor or sensory deficits noted Skin: Intact with no visualized rashes Psych: Normal affect and mood ED course: 86-year-old well-appearing female presents emergency department for multiple complaints. First complaint is epigastric and chest burning sensation during and after eating. She is been diagnosed with hiatal hernia. Secondary complaint is elevated blood sugars for the last several days. She does report changes in her diabetes medications recently. Laboratory evaluation obtained. CBC within acceptable limits. Metabolic panel shows sodium 128, elevated renal markers would be one of 66 and a creatinine of 1.97. Point of care blood glucose is 303. Patient given IV fluids. It was recommended patient to be admitted due to symptoms of hypoperfusion however patient refused. Patient states that she wants to be discharged and try to drink fluids and hydrate herself at home and to follow up with her primary care doctor. Patient understands that her labs are abnormal. She is agreeable to follow up with her primary care doctor for reevaluation. Return precautions discussed. Patient's epigastric symptoms are likely secondary to her hiatal hernia. No concerns for ACS symptoms given that her symptoms are atypical. Most of patient's symptoms are secondary to dehydration. EKG interpretation: Ventricular rate 80, sinus bradycardia, KS interval 194, QS 170, QTc 504. Left bundle branch block. Compared to EKG from 07/31/2018 showi ng significant changes. There is no more recent EKG for comparison. At this point EKG is abnormal but nonspecific. - Related Data Home Medications Medication Instructions Recorded Confirmed Aspirin EC [Ecotrin Low Dose] 81 mg PO DAILY 07/31/18 12/27/21 Atorvastatin [Lipitor] 20 mg PO HS 07/31/18 12/27/21 Febuxostat [Uloric] 40 mg PO DAILY 07/31/18 12/27/21 Loperamide HCl [Imodium A-D] 2 - 4 mg PO DAILY PRN 07/31/18 12/27/21 Metoprolol Succinate (ER) [Toprol 50 mg PO DAILY 07/31/18 12/27/21 Xl] Omeprazole/Sodium Bicarbonate 1 cap PO AC-LUNCH 07/31/18 12/27/21 [Zegerid 20 mg Capsule] Spironolact/Hydrochlorothiazid 1 tab PO DAILY 07/31/18 12/27/21 [Aldactazide 25-25 MG] amLODIPine [Norvasc] 5 mg PO DAILY 07/31/18 12/27/21 cloNIDine 0.2 MG/24HR PATCH 1 patch TRANSDERM FR 07/31/18 12/27/21 [Catapres-TTS] glipiZIDE [Glucotrol] 10 mg PO AC-BID 07/31/18 12/27/21 Sertraline [Zoloft] 100 mg PO DAILY 08/20/20 12/27/21 Cholecalciferol [Vitamin D3 (25 50 mcg PO DAILY 12/27/21 12/27/21 Mcg = 1000 Iu)] Cyanocobalamin [Vitamin B-12] 500 mcg PO DAILY 12/27/21 12/27/21 Dapagliflozin Propanediol [Farxiga] 10 mg PO DAILY 12/27/21 12/27/21 Furosemide [Lasix] 40 mg PO DIRECTED 12/27/21 12/27/21 Insulin Glargine,Hum.rec.anlog 10 units SQ HS 12/27/21 12/27/21 [Tomjuliansammy Sandovalnoe] Vitamin E (Dl,Tocopheryl Acet) 400 unit PO DAILY 12/27/21 12/27/21 [Vitamin E (400 Iu = 180 mg)] buPROPion XL [Wellbutrin XL] 300 mg PO DAILY 12/27/21 12/27/21 Allergies Allergy/AdvReac Type Severity Reaction Status Date / Time Iodine and Iodide Containing Allergy Swelling Verified 12/27/21 16:20 Produc metformin AdvReac Unknown Diarrhea Verified 12/27/21 16:20 hydrocodone AdvReac Nausea & Verified 12/27/21 16:20 Vomiting naproxen AdvReac Nausea & Verified 12/27/21 16:20 Vomiting Review of Systems ROS Statement: Those systems with pertinent positive or pertinent negative responses have been documented in the HPI. ROS Other: All systems not noted in ROS Statement are negative. Past Medical History Past Medical History: Asthma, Coronary Artery Disease (CAD), Diabetes Mellitus, GERD/Reflux, Hyperlipidemia, Hypertension, Osteoarthritis (OA) Additional Past Medical History / Comment(s): hx asthma (no current meds), back pain, gout, states she falls alot- dr checking for parkinsons, states shakey hands & feet., anemia, urine leakage-wears depends., diverticulitis with bowel resection, hx polyps., states dizziness when she falls., fell 08/12/20 and fx right ankle-wearing a boot and using a wheelchair. History of Any Multi-Drug Resistant Organisms: None Reported Past Surgical History: Cholecystectomy Additional Past Surgical History / Comment(s): colon resection for diverticulitis, fistula (stool in urine) Past Anesthesia/Blood Transfusion Reactions: No Reported Reaction Additional Past Anesthesia/Blood Transfusion Reaction / Comment(s): states dizziness when she falls Past Psychological History: Depression Smoking Status: Never smoker Past Alcohol Use History: Rare Past Drug Use History: None Reported - Past Family History Sister(s) Family Medical History: Cancer Additional Family Medical History / Comment(s): 3 sisters with breast cancer Daughter(s) Family Medical History: CVA/TIA Son(s) Additional Family Medical History / Comment(s): son from heart problems General Exam Limitations: no limitations Course Vital Signs 12/27/21 14:11 Temperature 97.9 F Pulse Rate 62 Respiratory 18 Rate Blood Pressure 137/66 O2 Sat by Pulse 94 L Oximetry Medical Decision Making - Lab Data Result diagrams: 12/27/21 16:10 12/27/21 16:10 Lab Results 12/27/21 12/27/21 12/27/21 Range/Units 14:16 16:10 16:10 WBC 12.4 H (3.8-10.6) k/uL RBC 5.42 H (3.80-5.40) m/uL Hgb 15.5 (11.4-16.0) gm/dL Hct 46.5 H (34.0-46.0) % MCV 85.7 (80.0-100.0) fL MCH 28.5 (25.0-35.0) pg MCHC 33.3 (31.0-37.0) g/dL RDW 12.8 (11.5-15.5) % Plt Count 281 (150-450) k/uL MPV 9.6 Neutrophils % 81 % Lymphocytes % 11 % Monocytes % 6 % Eosinophils % 0 % Basophils % 0 % Neutrophils # 10.1 H (1.3-7.7) k/uL Lymphocytes # 1.3 (1.0-4.8) k/uL Monocytes # 0.8 (0-1.0) k/uL Eosinophils # 0.0 (0-0.7) k/uL Basophils # 0.0 (0-0.2) k/uL Sodium 128 L (137-145) mmol/L Potassium 3.4 L (3.5-5.1) mmol/L Chloride 77 L (98-107) mmol/L Carbon Dioxide 36 H (22-30) mmol/L Anion Gap 15 mmol/L BUN 66 H (7-17) mg/dL Creatinine 1.97 H (0.52-1.04) mg/dL Est GFR (CKD-EPI)AfAm 26 (>60 ml/min/1.73 sqM) Est GFR (CKD-EPI)NonAf 23 (>60 ml/min/1.73 sqM) Glucose 303 H (74-99) mg/dL POC Glucose (mg/dL) 296 H (70-110) mg/dL POC Glu Launch Leader ID Kraig Posada Calcium 9.7 (8.4-10.2) mg/dL Magnesium 1.6 (1.6-2.3) mg/dL Disposition Clinical Impression: Dehydration Disposition: HOME SELF-CARE Condition: Fair Instructions (If sedation given, give patient instructions): Dehydration (ED) Is patient prescribed a controlled substance at d/c from ED?: No Referrals: Tad Patel MD [Primary Care Provider] - 1-2 days Time of Disposition: 17:37
[2021-12-27 16:29] LABS: Basophils % (A) 0 %; Eosinophils % (A) 0 %; HCT 46.5 % (34.0-46.0); HGB 15.5 gm/dL (11.4-16.0); Lymphocytes # (A) 1.3 k/uL (1.0-4.8); Lymphocytes % (A) 11 %; MCH 28.5 pg (25.0-35.0); MCHC 33.3 g/dL (31.0-37.0); MCV 85.7 fL (80.0-100.0); Mean Platelet Volume 9.6; Monocytes # (A) 0.8 k/uL (0-1.0); Monocytes % (A) 6 %; Neutrophils # (A) 10.1 k/uL (1.3-7.7); Neutrophils % (A) 81 %; Platelet Count 281 k/uL (150-450); RBC 5.42 m/uL (3.80-5.40); RDW 12.8 % (11.5-15.5); WBC 12.4 k/uL (3.8-10.6)
[2021-12-27 16:37] LABS: Calcium 9.7 mg/dL (8.4-10.2); Magnesium 1.6 mg/dL (1.6-2.3); Potassium 3.4 mmol/L (3.5-5.1)
[2021-12-27 19:04] VITALS: BP 136/68; PULSE 65
== END 2021-12-27 18:24 | disposition home or self-care (01) ==
LOC: EC 14:07
DX: E86.0 Dehydration (principal); E11.9 Type 2 diabetes mellitus without complications; I10 Essential (primary) hypertension; J45.909 Unspecified asthma, uncomplicated; I25.10 Atherosclerotic heart disease of native coronary artery without angina pectoris; K21.9 Gastro-esophageal reflux disease without esophagitis; M10.9 Gout, unspecified; E78.5 Hyperlipidemia, unspecified; M19.90 Unspecified osteoarthritis, unspecified site; F32.A Depression, unspecified; Z79.4 Long term (current) use of insulin; Z79.84 Long term (current) use of oral hypoglycemic drugs; Z79.82 Long term (current) use of aspirin; Z79.899 Other long term (current) drug therapy
CPT/HCPCS: 36415; 80048; 83735; 85025; 93005; 96360; 99284

== ENCOUNTER 2023-03-22 16:43 | Emergency (ER) | payer MEDICARE ==
[2023-03-22 16:59] VITALS: BP 172/51; PULSE 41; RESP 20; TEMP 97.4
[2023-03-22 17:45] LABS: Basophils % (A) 0 %; Eosinophils # (A) 0.1 k/uL (0-0.7); Eosinophils % (A) 1 %; HCT 38.9 % (34.0-46.0); HGB 12.9 gm/dL (11.4-16.0); Lymphocytes # (A) 1.3 k/uL (1.0-4.8); Lymphocytes % (A) 15 %; MCH 30.5 pg (25.0-35.0); MCHC 33.2 g/dL (31.0-37.0); Mean Platelet Volume 8.9; Monocytes # (A) 0.5 k/uL (0-1.0); Monocytes % (A) 6 %; Neutrophils # (A) 6.6 k/uL (1.3-7.7); Neutrophils % (A) 76 %; Platelet Count 254 k/uL (150-450); RBC 4.23 m/uL (3.80-5.40); RDW 12.9 % (11.5-15.5); WBC 8.8 k/uL (3.8-10.6)
[2023-03-22 18:05] LABS: ALT 24 U/L (4-34); AST 32 U/L (14-36); African American GFR (CKD) 34 (>60 ml/min/1.73 sqM); Alkaline Phosphatase 58 U/L (38-126); Anion Gap 11 mmol/L; Blood Urea Nitrogen 43 mg/dL (7-17); Calcium 9.5 mg/dL (8.4-10.2); Carbon Dioxide 24 mmol/L (22-30); Chloride 103 mmol/L (98-107); Glucose 151 mg/dL (74-99); Non-African American GFR(CKD) 30 (>60 ml/min/1.73 sqM); Potassium 4.7 mmol/L (3.5-5.1); Sodium 138 mmol/L (137-145); Total Bilirubin 0.7 mg/dL (0.2-1.3); Total Protein 6.8 g/dL (6.3-8.2)
[2023-03-22 18:13] LABS: NT-Pro-B-Type Natriuretic Pept 900 pg/mL
--- NOTE | 2023-03-22 18:44 | XR ---
EXAMINATION: XR chest 1V portable DATE AND TIME: 03/22/2023 6:25 PM CLINICAL INDICATION: PHH; weakness TECHNIQUE: AP upright portable COMPARISON: 07/31/2018 FINDINGS: EKG leads. The lungs are clear. The pleural spaces are negative. The cardiac silhouette is not enlarged. The remainder of the mediastinal silhouette is unremarkable. The skeletal structures and soft tissues are negative for acute findings. IMPRESSION: No acute radiographic process.
--- NOTE | 2023-03-22 19:02 | ED ---
General Adult HPI - General Chief complaint: Recheck/Abnormal Lab/Rx Stated complaint: blood low - referal Time Seen by Provider: 03/22/23 17:16 Source: patient Mode of arrival: ambulatory Limitations: no limitations - History of Present Illness Initial comments: This patient is a 87-year-old woman who was undergoing preoperative evaluation for procedure when she was found to have significant bradycardia. They felt that it was not safe to proceed with procedure and the patient for did here for further evaluation. The patient does states she is feeling a little weak and dizzy. She denies chest pain, dyspnea, diaphoresis, nausea or vomiting. Pat ient states she does take beta lexx. -: hour(s) Severity scale (1-10): 0 Consistency: constant Improves with: none Worsens with: none Associated Symptoms: weakness Treatments Prior to Arrival: none - Related Data Home Medications Medication Instructions Recorded Confirmed Aspirin EC [Ecotrin Low Dose] 81 mg PO DAILY 07/31/18 03/27/23 Atorvastatin [Lipitor] 20 mg PO HS 07/31/18 03/27/23 Febuxostat [Uloric] 40 mg PO DAILY 07/31/18 03/26/23 Loperamide HCl [Imodium A-D] 2 - 4 mg PO QID PRN 07/31/18 03/26/23 Metoprolol Succinate (ER) [Toprol 25 mg PO DAILY 07/31/18 03/27/23 Xl] Omeprazole/Sodium Bicarbonate 1 cap PO AC-LUNCH 07/31/18 03/27/23 [Zegerid 20 mg Capsule] Spironolact/Hydrochlorothiazid 1 tab PO DAILY 07/31/18 03/27/23 [Aldactazide 25-25 MG] cloNIDine 0.2 MG/24HR PATCH 1 patch TRANSDERM DIRECTED 07/31/18 03/27/23 [Catapres-TTS] glipiZIDE [Glucotrol] 10 mg PO AC-BID 07/31/18 03/26/23 Sertraline [Zoloft] 100 mg PO DAILY 08/20/20 03/27/23 Cholecalciferol [Vitamin D3 (25 50 mcg PO DAILY 12/27/21 03/26/23 Mcg = 1000 Iu)] Cyanocobalamin [Vitamin B-12] 500 mcg PO DAILY 12/27/21 03/26/23 Insulin Glargine,Hum.rec.anlog 21 units SQ DAILY 12/27/21 03/27/23 [Crispin Sandovalostar] Vitamin E (Dl,Tocopheryl Acet) 400 unit PO DAILY 12/27/21 03/26/23 [Vitamin E (400 Iu = 180 mg)] buPROPion XL [Wellbutrin XL] 300 mg PO DAILY 12/27/21 03/27/23 Allergies Allergy/AdvReac Type Severity Reaction Status Date / Time Iodine and Iodide Containing Allergy Swelling Verified 03/26/23 12:23 Produc metformin AdvReac Unknown Diarrhea Verified 03/26/23 12:23 hydrocodone AdvReac Nausea & Verified 03/26/23 12:23 Vomiting, headaches naproxen AdvReac Nausea & Verified 03/26/23 12:23 Vomiting Review of Systems ROS Statement: Those systems with pertinent positive or pertinent negative responses have been documented in the HPI. ROS Other: All systems not noted in ROS Statement are negative. Constitutional: Reports: weakness. Denies: fever, chills Eyes: Denies: vision change Respiratory: Denies: cough, dyspnea Cardiovascular: Denies: chest pain, palpitations, orthopnea, edema Gastrointestinal: Denies: abdominal pain, nausea, vomiting, diarrhea Genitourinary: Denies: dysuria, hematuria Musculoskeletal: Denies: back pain Skin: Denies: rash Neurological: Denies: headache, weakness, numbness, confusion Past Medical History Past Medical History: Asthma, Coronary Artery Disease (CAD), Diabetes Mellitus, GERD/Reflux, Hyperlipidemia, Hypertension, Osteoarthritis (OA) Additional Past Medical History / Comment(s): hx asthma (no current meds), back pain, gout, states she falls alot- dr checking for parkinsons, states shakey hands & feet., anemia, urine leakage-wears depends., diverticulitis with bowel resection, hx polyps., states dizziness when she falls., fell 08/12/20 and fx right ankle-wearing a boot and using a wheelchair. History of Any Multi-Drug Resistant Organisms: None Reported Past Surgical History: Cholecystectomy Additional Past Surgical History / Comment(s): colon resection for diverticulitis, fistula (stool in urine) Past Anesthesia/Blood Transfusion Reactions: No Reported Reaction Additional Past Anesthesia/Blood Transfusion Reaction / Comment(s): states dizziness when she falls Past Psychological History: Depression Smoking Status: Never smoker Past Alcohol Use History: Rare Past Drug Use History: None Reported - Past Family History Sister(s) Family Medical History: Cancer Additional Family Medical History / Comment(s): 3 sisters with breast cancer Daughter(s) Family Medical History: CVA/TIA Son(s) Additional Family Medical History / Comment(s): son from heart problems General Exam Limitations: no limitations General appearance: alert, in no apparent distress Head exam: Present: atraumatic, normocephalic Eye exam: Present: normal appearance. Absent: scleral icterus, conjunctival injection Neck exam: Present: normal inspection, full ROM Respiratory exam: Present: normal lung sounds bilaterally. Absent: respiratory distress, wheezes, rales, rhonchi, stridor, accessory muscle use Cardiovascular Exam: Present: bradycardia, irregular rhythm, normal heart sounds. Absent: systolic murmur, diastolic murmur, rubs, gallop GI/Abdominal exam: Present: soft. Absent: distended, tenderness, guarding, rebound, rigid, mass Extremities exam: Present: normal inspection, normal capillary refill. Absent: pedal edema, calf tenderness Back exam: Present: normal inspection. Absent: CVA tenderness (R), CVA tenderness (L) Neurological exam: Present: alert Skin exam: Present: warm, dry, intact, normal color. Absent: rash Course Vital Signs 03/22/23 16:55 Temperature 97.4 F L Pulse Rate 41 L Respiratory 20 Rate Blood Pressure 172/51 O2 Sat by Pulse 97 Oximetry EKG Findings - EKG Results: EKG: interpreted by ERMD - Blocks, [place], Hypertrophy, ST Abn: AV and intraventricular conduction: complete (3) AV block, right bundle branch block (fixed/intermittent, complete/incomplete) QRS axis and voltage: right axis deviation (+90 to +180) Repolarization changes or abnormalities: Q-T interval prolongation Medical Decision Making - Medical Decision Making The patient had chest x-ray which I interpreted as negative for acute infiltrate, pneumothorax, congestive heart failure Was pt. sent in by a medical professional or institution (, PA, BUSINESS DEVELOPMENT REPRESENTATIVE, urgent care, hospital, or usp...) When possible be specific @ -[This patient is sent from preoperative to have further evaluation for bradycardia Did you speak to anyone other than the patient for history (EMS, parent, family, police, friend...)? What history was obtained from this source @ -[No] Did you review nursing and triage notes (agree or disagree)? Why? @ -[I reviewed and agree with nursing and triage notes] Were old charts reviewed (outside hosp., previous admission, EMS record, old EKG, old radiological studies, urgent care reports/EKG's, usp records)? Report findings @ -[No old charts were reviewed] Differential Diagnosis (chest pain, altered mental status, abdominal pain women, abdominal pain men, vaginal bleeding, weakness, fever, dyspnea, syncope, headache, dizziness, GI bleed, back pain, seizure, CVA, palpatations, mental health, musculoskeletal)? @ -[Differential Palpitations Ventricular arrhythmias, atrial arrhythmias, myocardial infarction, anemia, thyrotoxicosis, electrolyte imbalance, hypokalemia, pulmonary embolism, pulmonary disease, drugs, alcohol, anxiety, stress.... This is not meant to be an all-inclusive list. EKG interpreted by me (3pts min.). @ -[I interpreted as above X-rays interpreted by me (1pt min.). @ -[I interpreted as above CT interpreted by me (1pt min.). @ -[None done] U/S interpreted by me (1pt. min.). @ -[None done] What testing was considered but not performed or refused? (CT, X-rays, U/S, labs)? Why? @ -[None] What meds were considered but not given or refused? Why? @ -[None] Did you discuss the management of the patient with other professionals (professionals i.e. , PA, BUSINESS DEVELOPMENT REPRESENTATIVE, lab, RT, psych nurse, high school social studies tutor, corking machine operator, teacher, special forces officer, rehabilitation case coordinator)? Give summary @ -[No] Was smoking cessation discussed for >3mins.? @ -[No] Was critical care preformed (if so, how long)? @ -[No] Were there social determinants of health that impacted care today? How? (Homelessness, low income, unemployed, alcoholism, drug addiction, transportation, low edu. Level, literacy, decrease access to med. care, nursing home, rehab)? @ -[No] Was there de-escalation of care discussed even if they declined (Discuss DNR or withdrawal of care, Hospice)? DNR status @ -[No] What co-morbidities impacted this encounter? (DM, HTN, Smoking, COPD, CAD, Cancer, CVA, ARF, Chemo, Hep., AIDS, mental health diagnosis, sleep apnea, morbid obesity)? @ -[Coronary artery disease, diabetes, hypertension Was patient admitted / discharged? Hospital course, mention meds given and route, prescriptions, significant lab abnormalities, going to OR and other pertinent info. @ -[Patient is an 87-year-old woman who was sent here after preop evaluation revealed significant bradycardia. The patient's ECG here does reveal significant bradycardia and heart block. I was in the process of arranging patient's admission to have cardiology evaluation and suspect pacemaker placement, and the patient stated that she was not going to stay. I explained concerns about heart block leading to significant symptomatic hypotension and possibility of cardiac , patient expresses understanding and states she will follow with the diamond sizer closely as outpatient but she will not stay today. Undiagnosed new problem with uncertain prognosis? @ -[No] Drug Therapy requiring intensive monitoring for toxicity (Heparin, Nitro, Insulin, Cardizem)? @ -[No] Were any procedures done? @ -[No] Diagnosis/symptom? @ -[Acute symptomatic bradycardia Acute third-degree heart block Acute, or Chronic, or Acute on Chronic? @ -[Acute Uncomplicated (without systemic symptoms) or Complicated (systemic symptoms)? @ -[Complicated by weakness/dizziness Side effects of treatment? @ -[No] Exacerbation, Progression, or Severe Exacerbation? @ -[No] Poses a threat to life or bodily function? How? (Chest pain, USA, MS, pneumonia, PE, COPD, DKA, ARF, appy, cholecystitis, CVA, Diverticulitis, Homicidal, Suicidal, threat to staff... and all critical care pts) @ -[Yes, there is risk of cardiac , patient signed out AMA - Lab Data Result diagrams: 03/22/23 17:17 03/22/23 17:17 Lab Results 03/22/23 03/22/23 03/22/23 Range/Units 17:17 17:17 17:17 WBC 8.8 (3.8-10.6) k/uL RBC 4.23 (3.80-5.40) m/uL Hgb 12.9 (11.4-16.0) gm/dL Hct 38.9 (34.0-46.0) % MCV 92.0 (80.0-100.0) fL MCH 30.5 (25.0-35.0) pg MCHC 33.2 (31.0-37.0) g/dL RDW 12.9 (11.5-15.5) % Plt Count 254 (150-450) k/uL MPV 8.9 Neutrophils % 76 % Lymphocytes % 15 % Monocytes % 6 % Eosinophils % 1 % Basophils % 0 % Neutrophils # 6.6 (1.3-7.7) k/uL Lymphocytes # 1.3 (1.0-4.8) k/uL Monocytes # 0.5 (0-1.0) k/uL Eosinophils # 0.1 (0-0.7) k/uL Basophils # 0.0 (0-0.2) k/uL Sodium 138 (137-145) mmol/L Potassium 4.7 (3.5-5.1) mmol/L Chloride 103 (98-107) mmol/L Carbon Dioxide 24 (22-30) mmol/L Anion Gap 11 mmol/L BUN 43 H (7-17) mg/dL Creatinine 1.58 H (0.52-1.04) mg/dL Est GFR (CKD-EPI)AfAm 34 (>60 ml/min/1.73 sqM) Est GFR (CKD-EPI)NonAf 30 (>60 ml/min/1.73 sqM) Glucose 151 H (74-99) mg/dL Calcium 9.5 (8.4-10.2) mg/dL Magnesium (1.6-2.3) mg/dL Total Bilirubin 0.7 (0.2-1.3) mg/dL AST 32 (14-36) U/L ALT 24 (4-34) U/L Alkaline Phosphatase 58 (38-126) U/L Troponin I <0.012 (0.000-0.034) ng/mL NT-Pro-B Natriuret Pep 900 pg/mL Total Protein 6.8 (6.3-8.2) g/dL Albumin 4.0 (3.5-5.0) g/dL 03/22/23 Range/Units 17:17 WBC (3.8-10.6) k/uL RBC (3.80-5.40) m/uL Hgb (11.4-16.0) gm/dL Hct (34.0-46.0) % MCV (80.0-100.0) fL MCH (25.0-35.0) pg MCHC (31.0-37.0) g/dL RDW (11.5-15.5) % Plt Count (150-450) k/uL MPV Neutrophils % % Lymphocytes % % Monocytes % % Eosinophils % % Basophils % % Neutrophils # (1.3-7.7) k/uL Lymphocytes # (1.0-4.8) k/uL Monocytes # (0-1.0) k/uL Eosinophils # (0-0.7) k/uL Basophils # (0-0.2) k/uL Sodium (137-145) mmol/L Potassium (3.5-5.1) mmol/L Chloride (98-107) mmol/L Carbon Dioxide (22-30) mmol/L Anion Gap mmol/L BUN (7-17) mg/dL Creatinine (0.52-1.04) mg/dL Est GFR (CKD-EPI)AfAm (>60 ml/min/1.73 sqM) Est GFR (CKD-EPI)NonAf (>60 ml/min/1.73 sqM) Glucose (74-99) mg/dL Calcium (8.4-10.2) mg/dL Magnesium 1.6 (1.6-2.3) mg/dL Total Bilirubin (0.2-1.3) mg/dL AST (14-36) U/L ALT (4-34) U/L Alkaline Phosphatase (38-126) U/L Troponin I (0.000-0.034) ng/mL NT-Pro-B Natriuret Pep pg/mL Total Protein (6.3-8.2) g/dL Albumin (3.5-5.0) g/dL Disposition Clinical Impression: Heart block atrioventricular Disposition: LEFT AGAINST MEDICAL ADVICE Condition: Fair Instructions (If sedation given, give patient instructions): Heart Block (ED) Additional Instructions: As we discussed, see the diamond sizer as soon as possible, as it appears she will need to have pacemaker placed. He may return here at any time to have the process expedited Is patient prescribed a controlled substance at d/c from ED?: No Referrals: Tad Patel MD [Primary Care Provider] - 1-2 days Andrade Rodriguez DO [STAFF PHYSICIAN] - 1-2 days
== END 2023-03-22 19:15 | disposition left against medical advice (07) ==
LOC: EC 16:43
DX: I44.2 Atrioventricular block, complete (principal); E11.10 Type 2 diabetes mellitus with ketoacidosis without coma; E78.5 Hyperlipidemia, unspecified; F32.A Depression, unspecified; I10 Essential (primary) hypertension; I25.10 Atherosclerotic heart disease of native coronary artery without angina pectoris; K21.9 Gastro-esophageal reflux disease without esophagitis; M19.90 Unspecified osteoarthritis, unspecified site; Z79.899 Other long term (current) drug therapy; Z79.84 Long term (current) use of oral hypoglycemic drugs; Z79.4 Long term (current) use of insulin; Z01.810 Encounter for preprocedural cardiovascular examination; Z59.00 Homelessness unspecified; Z59.6 Low income; Z66 Do not resuscitate; Z88.5 Allergy status to narcotic agent; Z88.6 Allergy status to analgesic agent; Z88.8 Allergy status to other drugs, medicaments and biological substances; Z90.49 Acquired absence of other specified parts of digestive tract; Z53.29 Procedure and treatment not carried out because of patient's decision for other reasons
CPT/HCPCS: 36415; 71045; 80053; 83735; 83880; 84484; 85025; 93005; 99284

== ENCOUNTER 2023-03-27 10:03 | Day surgery (SDC) | payer MEDICARE ==
[2023-03-27] MEDS ORDERED: SODIUM CHLORIDE 0.9% 1,000 ML IV ONE (10:22)
[2023-03-27 10:49] LABS: Glucose,Whole Blood 140 mg/dL (70-110)
[2023-03-27] MEDS ORDERED: ceFAZolin 1 GM in SODIUM CHLORIDE 0.9% IRRIG BTL 250 ML IRRIGATION PRN (11:43)
[2023-03-27] MEDS: fentaNYL (PF) 50 MCG/ML 2 ML AMP IVP ONE ×2 (12:23→12:36)
[2023-03-27] MEDS ORDERED: MIDAZOLAM 2 MG/2 ML VIAL IVP ONE (12:23)
[2023-03-27] MEDS ORDERED: LIDOCAINE 1% INJ 10MG/ML (20 ML MDV) SQ ONE (12:27)
[2023-03-27] MEDS: LIDOCAINE 1% INJ 10MG/ML (20 ML MDV) SQ ONE ×2 (12:38→13:39)
[2023-03-27] MEDS: SODIUM CHLORIDE 0.9% 1,000 ML IV SCH (14:40)
[2023-03-27] MEDS ORDERED: ACETAMINOPHEN TAB 325 MG TAB PO PRN (15:06)
--- NOTE | 2023-03-27 15:38 | XR ---
EXAMINATION TYPE: XR chest 1V portable DATE OF EXAM: 03/27/2023 COMPARISON: 03/22/2023 HISTORY: Lead placement TECHNIQUE: Single frontal view of the chest is obtained. FINDINGS: There is no focal air space opacity, pleural effusion, or pneumothorax seen. The cardiac silhouette size is within normal limits. The osseous structures are intact. Hyperinflation compatible COPD. Diffuse osteopenia. Arthropathy of the shoulders. Calcific tendinosis of the left shoulder. There is a small hiatal hernia. There is a dual lead cardiac device with the proximal lead overlying the right atrium and distal lead overlying the right ventricle. IMPRESSION: 1. Dual lead cardiac device appears in good position with no evidence of pneumothorax.
--- NOTE | 2023-03-27 17:00 | P.PCN ---
Description of Procedure: CARDIOLOGY PROCEDURE NOTE Sharepoint Engineer: Dr. Andrade Rodriguez Procedure performed: Insertion dual chamber permanent pacemaker Site: Left subclavian Indications: Complete heart block, intermittent 2nd degree type 2 block Complications: None Blood Loss: Minimal Description of Procedure: After the risks, benefits, and alternatives of the above-mentioned procedure was explained in detail with the patient, informed consent was obtained. The patient was taken to the cardiac catheterization suite where the left subclavian area was sterily prepped and draped in the usual fashion. One percent lidocaine was used to anesthetize the left subclavian area. Twenty milliliters of Isoview 370 contrast was injected into the left antecubital vein to allow for direct visualization of the left subclavian vein under fluoroscopy. A 1.5 inch incision was made utilizing a #15 blade in the left subclavian site. Hemostasis was made complete. Electrocautery along with digital blunt dissection was utilized to dissect to the level of the pectoralis muscle fascia and create a pocket large enough to accommodate the generator. A thin walled micro puncuture needle was used to cannulate the left subclavian vein. A guide-wire was inserted through the needle into the vascular lumen under fluoroscopic guidance. The needle was removed. Another thin walled micr puncture needle was used to again cannulate the left subclavian vein. A guide-wire was inserted through the needle into the vascular lumen under fluoroscopic guidance. The needle was removed and both guide-wires were attached to the field. A venous sheath and dilator were advanced over the guidewire into the vascular lumen under fluoroscopic guidance. The dilator and guidewire were then removed. A right ventricular bipolar lead was inserted into the sheath and advanced under fluoroscopic guidance into the right ventricle under fluoroscopic guidance. There were inadequate thresholds at the apex and therefore a more septal approach was taken. Adequate sensing and pacing thresholds were achieved and the lead was screwed into place in the RV apex. The sheath was then torn away. The lead collar was advanced and anchored into place utilizing #0 silk suture. Next, another venous sheath and dilator were advanced under fluoroscopic guidance into the vascular lumen over the guidewire. After removal of the dilator and guidewire, a right atrial bipolar lead was inserted into this sheath and advanced under fluoroscopic guidance into the right atrium. The lead was positioned into the right atrial appendage. Adequate sensing and pacing thresholds were then achieved with patient being in Aflutter at the time and the lead was screwed into place. The sheath was then torn away. The lead collar was advanced and anchored into place utilizing #0 silk suture. The leads were then inserted into the appropriate position into the generator. They were then secured with the setscrew provided. The leads and generator were inserted into the pocket with the leads posterior. The subcutaneous tissue was approximated utilizing #2.0 and 3.0 vicryl in an interrupted stitch fashion. The dermal layer was approximated utilizing #4.0 vicryl. The area was cleansed with sterile saline and dried. A sterile 4x4 dressing was applied and the patient was transferred to the post catheterization holding area in stable and satisfactory condition. The patient tolerated the procedure well. Generator Data Suction Dredge Dumping Supervisor: [employer] Brand: [id number] [id number] [place] XT DR MRI Model #: [id number] Serial#: [id number] Right Atrial Bipolar Lead Data: Type: Active fixation lead Suction Dredge Dumping Supervisor: Dumbstruck Model#: 5076-45 Serial Number: [id number] Right Ventricular Bipolar Lead Data: Type: Active fixation lead Suction Dredge Dumping Supervisor: [employer] Model #: 5076-52 Serial #: [id number] Stimulation Thresholds: Right atrial bipolar lead pacing and sensing thresholds Voltage: 1.5 Impedance: 361 ohms P-wave sensin.6 mV Right Ventricular bipolar lead pacing and sensing thresholds Pulse Width: 0.4ms Voltage: 0.75 volts Impedance: 817 ohms R-wave sensin.1 mV Parameter Setting: Pacing mode is DDD Lower rate 60 bpm Upper rate 130 bpm Impressions: 1. Successful implantation of a dual chamber permanent pacemaker in the left pectoral site. Plan: 1. Routine post procedure care will be instituted as well as outpatient follow- up surveillance.
[2023-03-27 17:30] LABS: Glucose,Whole Blood 138 mg/dL (70-110)
[2023-03-27] MEDS: INSULIN ASPART (NovoLOG) 100 UNIT/ML VIAL SQ SCH ×2 (17:30→21:39)
[2023-03-27 21:35] LABS: Glucose,Whole Blood 157 mg/dL (70-110)
[2023-03-28 06:22] LABS: Glucose,Whole Blood 118 mg/dL (70-110)
[2023-03-28] MEDS: INSULIN ASPART (NovoLOG) 100 UNIT/ML VIAL SQ SCH (06:22)
[2023-03-28 08:43] VITALS: BP 159/68; PULSE 64; RESP 16; TEMP 98
[2023-03-28] MEDS: SODIUM CHLORIDE 0.9% 1,000 ML IV SCH (08:53)
--- NOTE | 2023-03-28 09:35 | P.DS ---
Providers Attending physician: Andrade Bernstein DO Primary care physician: [facility] Course: Patient has been experiencing increased fatigue and was noted to have rated cardia with EKG showing complete heart block as well as second-degree type II heart block. Therefore patient was recommended to go to ER however left AMA. Therefore patient was scheduled for dual-chamber permanent pacemaker which was placed 03/27 without issue. Patient without any chest pain or shortness breath 03/28 and appears stable for discharge. Patient can be restarted on her metoprolol which had been held. Plan - Discharge Summary Discharge Rx Participant: No New Discharge Prescriptions: No Action Loperamide HCl [Imodium A-D] 2 - 4 mg PO QID PRN PRN Reason: Diarrhea Omeprazole/Sodium Bicarbonate [Zegerid 20 mg Capsule] 1 cap PO AC-LUNCH Spironolact/Hydrochlorothiazid [Aldactazide 25-25 MG] 1 tab PO DAILY Aspirin EC [Ecotrin Low Dose] 81 mg PO DAILY Metoprolol Succinate (ER) [Toprol Xl] 25 mg PO DAILY Febuxostat [Uloric] 40 mg PO DAILY glipiZIDE [Glucotrol] 10 mg PO AC-BID cloNIDine 0.2 MG/24HR PATCH [Catapres-TTS] 1 patch TRANSDERM DIRECTED Atorvastatin [Lipitor] 20 mg PO HS Sertraline [Zoloft] 100 mg PO DAILY Vitamin E (Dl,Tocopheryl Acet) [Vitamin E (400 Iu = 180 mg)] 400 unit PO DAILY Cholecalciferol [Vitamin D3 (25 Mcg = 1000 Iu)] 50 mcg PO DAILY buPROPion XL [Wellbutrin XL] 300 mg PO DAILY Insulin Glargine,Hum.rec.anlog [Toujeo Solostar] 21 units SQ DAILY Cyanocobalamin [Vitamin B-12] 500 mcg PO DAILY Discharge Medication List Aspirin EC [Ecotrin Low Dose] 81 mg PO DAILY 07/31/18 [History] Atorvastatin [Lipitor] 20 mg PO HS 07/31/18 [History] Febuxostat [Uloric] 40 mg PO DAILY 07/31/18 [History] Loperamide HCl [Imodium A-D] 2 - 4 mg PO QID PRN 07/31/18 [History] Metoprolol Succinate (ER) [Toprol Xl] 25 mg PO DAILY 07/31/18 [History] Omeprazole/Sodium Bicarbonate [Zegerid 20 mg Capsule] 1 cap PO AC-LUNCH 07/31/18 [History] Spironolact/Hydrochlorothiazid [Aldactazide 25-25 MG] 1 tab PO DAILY 07/31/18 [History] cloNIDine 0.2 MG/24HR PATCH [Catapres-TTS] 1 patch TRANSDERM DIRECTED 07/31/18 [History] glipiZIDE [Glucotrol] 10 mg PO AC-BID 07/31/18 [History] Sertraline [Zoloft] 100 mg PO DAILY 08/20/20 [History] Cholecalciferol [Vitamin D3 (25 Mcg = 1000 Iu)] 50 mcg PO DAILY 12/27/21 [History] Cyanocobalamin [Vitamin B-12] 500 mcg PO DAILY 12/27/21 [History] Insulin Glargine,Hum.rec.anlog [Toujeo Solostar] 21 units SQ DAILY 12/27/21 [History] Vitamin E (Dl,Tocopheryl Acet) [Vitamin E (400 Iu = 180 mg)] 400 unit PO DAILY 12/27/21 [History] buPROPion XL [Wellbutrin XL] 300 mg PO DAILY 12/27/21 [History] Follow up Appointment(s)/Referral(s): Andrade Bernstein DO [STAFF PHYSICIAN] - 04/04/23 10:00 am (APPOINTMENT IS DEVICE CHECK AND TO SEE DR BERNSTEIN. ) Patient Instructions/Handouts: Moderate Sedation (DC), Bradycardia (DC), Fall Prevention (DC), Pacemaker (DC)
[2023-03-28] MEDS ORDERED: ASPIRIN 81 MG PO SCH (09:45)
[2023-03-28] MEDS ORDERED: INSULIN DETEMIR (LEVEMIR) 100 UNIT/ML SYR SQ SCH (09:45)
[2023-03-28] MEDS ORDERED: glipiZIDE 10 MG TAB PO SCH (09:45)
[2023-03-28] MEDS ORDERED: cloNIDine 0.2 MG/24HR PATCH TRANSDERM SCH (09:45)
[2023-03-28] MEDS ORDERED: METOPROLOL SUCCINATE (ER) 25 MG TAB.ER.24H PO SCH (09:45)
[2023-03-28] MEDS ORDERED: SPIRONOLACTONE-HCTZ 25-25MG 1 EACH TAB PO SCH (09:45)
[2023-03-28] MEDS ORDERED: buPROPion XL 300 MG TAB.ER.24H PO SCH (09:45)
[2023-03-28 10:01] LABS: Glucose,Whole Blood 260 mg/dL (70-110)
[2023-03-28] MEDS ORDERED: ATORVASTATIN 20 MG TAB PO SCH (21:00)
== END 2023-03-28 11:57 | disposition home or self-care (01) ==
LOC: CATHEP 10:03 → 6NMEDSUR 13:35 → CATHEP 03-28 11:57
PROVIDERS: ATTEND Internal Medicine
DX: I44.2 Atrioventricular block, complete (principal); Z79.82 Long term (current) use of aspirin; Z79.84 Long term (current) use of oral hypoglycemic drugs
CPT/HCPCS: 33208; 84443; 71045; C1892; C1898; C1769; C1785; J2250; J0690; J2001; J3010

== ENCOUNTER 2024-03-28 12:00 | Inpatient (IN) | payer MEDICARE ==
--- NOTE | 2024-03-28 12:19 | ED ---
General Adult HPI - General Chief complaint: Chest Pain Stated complaint: Chest Pain Time Seen by Provider: 03/28/24 12:10 Source: patient, RN notes reviewed Mode of arrival: wheelchair Limitations: no limitations - History of Present Illness Initial comments: Patient is an 88-year-old female presenting to the emergency department with concerns with chest discomfort. Discomfort feels like heaviness. Onset of symptoms was this morning when she awoke. Discomfort has almost resolved at this point. Patient has had some associated dyspnea and nausea. No diaphoresis. Unclear if she has history of similar symptoms previously. - Related Data Home Medications Medication Instructions Recorded Confirmed Aspirin EC [Ecotrin Low Dose] 81 mg PO DAILY 07/31/18 03/27/23 Atorvastatin [Lipitor] 20 mg PO HS 07/31/18 03/27/23 Febuxostat [Uloric] 40 mg PO DAILY 07/31/18 03/26/23 Loperamide HCl [Imodium A-D] 2 - 4 mg PO QID PRN 07/31/18 03/26/23 Metoprolol Succinate (ER) [Toprol 25 mg PO DAILY 07/31/18 03/27/23 Xl] Omeprazole/Sodium Bicarbonate 1 cap PO AC-LUNCH 07/31/18 03/27/23 [Zegerid 20 mg Capsule] Spironolact/Hydrochlorothiazid 1 tab PO DAILY 07/31/18 03/27/23 [Aldactazide 25-25 MG] cloNIDine 0.2 MG/24HR PATCH 1 patch TRANSDERM DIRECTED 07/31/18 03/27/23 [Catapres-TTS] glipiZIDE [Glucotrol] 10 mg PO AC-BID 07/31/18 03/26/23 Sertraline [Zoloft] 100 mg PO DAILY 08/20/20 03/27/23 Cholecalciferol [Vitamin D3 (25 50 mcg PO DAILY 12/27/21 03/26/23 Mcg = 1000 Iu)] Cyanocobalamin [Vitamin B-12] 500 mcg PO DAILY 12/27/21 03/26/23 Insulin Glargine,Hum.rec.anlog 21 units SQ DAILY 12/27/21 03/27/23 [Crispin Sarmiento] Vitamin E (Dl,Tocopheryl Acet) 400 unit PO DAILY 12/27/21 03/26/23 [Vitamin E (400 Iu = 180 mg)] buPROPion XL [Wellbutrin XL] 300 mg PO DAILY 12/27/21 03/27/23 Allergies Allergy/AdvReac Type Severity Reaction Status Date / Time Iodine and Iodide Containing Allergy Swelling Verified 03/28/24 12:02 Produc metformin AdvReac Unknown Diarrhea Verified 03/28/24 12:02 hydrocodone AdvReac Nausea & Verified 03/28/24 12:02 Vomiting, headaches naproxen AdvReac Nausea & Verified 03/28/24 12:02 Vomiting Review of Systems ROS Statement: Those systems with pertinent positive or pertinent negative responses have been documented in the HPI. ROS Other: All systems not noted in ROS Statement are negative. Constitutional: Denies: fever Eyes: Denies: eye pain ENT: Denies: ear pain Respiratory: Reports: as per HPI Cardiovascular: Reports: as per HPI, chest pain Endocrine: Denies: fatigue Gastrointestinal: Reports: nausea. Denies: abdominal pain Genitourinary: Denies: dysuria Musculoskeletal: Denies: back pain Skin: Denies: rash Past Medical History Past Medical History: Asthma, Coronary Artery Disease (CAD), Diabetes Mellitus, GERD/Reflux, Hyperlipidemia, Hypertension, Osteoarthritis (OA) Additional Past Medical History / Comment(s): hx asthma (no current meds), back pain, gout, whole body shakes -? parkinsons, states shakey hands & feet., anemia, urine leakage-wears depends., diverticulitis with bowel resection, hx polyps., states dizziness when she falls., ankle fx History of Any Multi-Drug Resistant Organisms: None Reported Past Surgical History: Bowel Resection, Cholecystectomy Additional Past Surgical History / Comment(s): colon resection for diverticulitis, fistula (stool in urine) ankle fx repair with pin removal later, jocelynn cataract removed Past Anesthesia/Blood Transfusion Reactions: No Reported Reaction Additional Past Anesthesia/Blood Transfusion Reaction / Comment(s): states dizziness when she falls Past Psychological History: Depression Smoking Status: Never smoker Past Alcohol Use History: Rare Past Drug Use History: None Reported - Past Family History Sister(s) Family Medical History: Cancer Additional Family Medical History / Comment(s): 3 sisters with breast cancer Daughter(s) Family Medical History: CVA/TIA Son(s) Additional Family Medical History / Comment(s): son from heart problems General Exam Limitations: no limitations General appearance: alert, in no apparent distress Head exam: Present: normocephalic Eye exam: Present: normal appearance Neck exam: Present: normal inspection Respiratory exam: Present: normal lung sounds bilaterally Cardiovascular Exam: Present: regular rate, normal rhythm, normal heart sounds Expanded Peripheral pulses: 2+: Radial (R), Radial (L), Dorsalis Pedis (R), Dorsalis Pedis (L) GI/Abdominal exam: Present: soft. Absent: tenderness Extremities exam: Present: normal inspection. Absent: pedal edema, calf tenderness Neurological exam: Present: alert Psychiatric exam: Present: normal affect, normal mood Skin exam: Present: normal color Course Vital Signs 03/28/24 12:02 Temperature 97.8 F Pulse Rate 72 Respiratory 16 Rate Blood Pressure 158/73 O2 Sat by Pulse 98 Oximetry EKG Findings - EKG Results: EKG: interpreted by ERMD (Rhythm with a rate of 63. Superior axis. Diffuse Q waves. Wide QRS complexes.) Medical Decision Making - Medical Decision Making Was pt. sent in by a medical professional or institution (, PA, NAV[employer] ARCHITECT, urgent care, hospital, or retirement...) When possible be specific @ -No Did you speak to anyone other than the patient for history (EMS, parent, family, police, friend...)? What history was obtained from this source @ - is present and helps provide additional information including onset of symptoms Did you review nursing and triage notes (agree or disagree)? Why? @ -I reviewed and agree with nursing and triage notes Were old charts reviewed (outside hosp., previous admission, EMS record, old EKG, old radiological studies, urgent care reports/EKG's, retirement records)? Report findings @ -Previous chest x-ray reviewed with similar results Differential Diagnosis (chest pain, altered mental status, abdominal pain women, abdominal pain men, vaginal bleeding, weakness, fever, dyspnea, syncope, headache, dizziness, GI bleed, back pain, seizure, CVA, palpatations, mental health, musculoskeletal)? @ -MDM differential differential Chest Pain: Stable Angina, Unstable Angina, STEMI, NSTEMI Aortic Dissection, Pneumothorax, Musculoskeletal, Esophageal Spasm GERD, Cholecystitis, Pancreatitis, Zoster, this is not meant to be an all-inclusive list. EKG interpreted by me (3pts min.). @ -As above X-rays interpreted by me (1pt min.). @ -Chest x-ray shows no acute process CT interpreted by me (1pt min.). @ -None done U/S interpreted by me (1pt. min.). @ -None done What testing was considered but not performed or refused? (CT, X-rays, U/S, la bs)? Why? @ -None What meds were considered but not given or refused? Why? @ -None Did you discuss the management of the patient with other professionals (professionals i.e. , PA, NAVAL ARCHITECT, lab, RT, psych nurse, social service coordinator, political organizer, teacher, licensing officer, caser shoe parts)? Give summary @ -Case discussed with Dr. Neff who will admit covering Dr. Shafefr Was smoking cessation discussed for >3mins.? @ -No Was critical care preformed (if so, how long)? @ -No Were there social determinants of health that impacted care today? How? (Homelessness, low income, unemployed, alcoholism, drug addiction, transportation, low edu. Level, literacy, decrease access to med. care, nursing home, rehab)? @ -No Was there de-escalation of care discussed even if they declined (Discuss DNR or withdrawal of care, Hospice)? DNR status @ -No What co-morbidities impacted this encounter? (DM, HTN, Smoking, COPD, CAD, C ancer, CVA, ARF, Chemo, Hep., AIDS, mental health diagnosis, sleep apnea, morbid obesity)? @ -Diabetes and coronary artery disease Was patient admitted / discharged? Hospital course, mention meds given and route, prescriptions, significant lab abnormalities, going to OR and other pertinent info. @ -Patient presents with chest discomfort with improving symptoms. Patient does have risk factors. First opponent unremarkable. Patient will be admitted with cardiac consult, admission orders written. Undiagnosed new problem with uncertain prognosis? @ -No Drug Therapy requiring intensive monitoring for toxicity (Heparin, Nitro, Insulin, Cardizem)? @ -No Were any procedures done? @ -No Diagnosis/symptom? @ -Chest pain Acute, or Chronic, or Acute on Chronic? @ -Acute Uncomplicated (without systemic symptoms) or Complicated (systemic symptoms)? @ -Complicated with hypomagnesemia Side effects of treatment? @ -No Exacerbation, Progression, or Severe Exacerbation? @ -No Poses a threat to life or bodily function? How? (Chest pain, [place], [place], pneumonia, PE, COPD, DKA, ARF, appy, cholecystitis, CVA, Diverticulitis, Homicidal, Suicidal, threat to staff... and all critical care pts) @ -Threat to cardiac function - Lab Data Result diagrams: 03/28/24 12:42 03/28/24 12:42 Lab Results 03/28/24 03/28/24 03/28/24 Range/Units 12:42 12:42 12:42 WBC 8.5 (3.8-10.6) k/uL RBC 4.27 (3.80-5.40) m/uL Hgb 13.7 (11.4-16.0) gm/dL Hct 39.4 (34.0-46.0) % MCV 92.3 (80.0-100.0) fL MCH 32.0 (25.0-35.0) pg MCHC 34.7 (31.0-37.0) g/dL RDW 12.8 (11.5-15.5) % Plt Count 217 (150-450) k/uL MPV 8.9 Neutrophils % 78 % Lymphocytes % 13 % Monocytes % 5 % Eosinophils % 1 % Basophils % 0 % Neutrophils # 6.6 (1.3-7.7) k/uL Lymphocytes # 1.1 (1.0-4.8) k/uL Monocytes # 0.4 (0-1.0) k/uL Eosinophils # 0.1 (0-0.7) k/uL Basophils # 0.0 (0-0.2) k/uL PT 10.7 (10.0-12.5) sec INR 1.0 (<1.2) APTT 22.1 (22.0-30.0) sec Sodium 138 (137-145) mmol/L Potassium 4.4 (3.5-5.1) mmol/L Chloride 104 (98-107) mmol/L Carbon Dioxide 26 (22-30) mmol/L Anion Gap 8 mmol/L BUN 30 H (7-17) mg/dL Creatinine 1.35 H (0.52-1.04) mg/dL Est GFR (CKD-EPI)AfAm 41 (>60 ml/min/1.73 sqM) Est GFR (CKD-EPI)NonAf 36 (>60 ml/min/1.73 sqM) Glucose 221 H (74-99) mg/dL Calcium 9.7 (8.4-10.2) mg/dL Magnesium 1.2 L (1.6-2.3) mg/dL Total Bilirubin 1.0 (0.2-1.3) mg/dL AST 44 H (14-36) U/L ALT 31 (4-34) U/L Alkaline Phosphatase 65 (38-126) U/L Troponin I (0.000-0.034) ng/mL Total Protein 6.8 (6.3-8.2) g/dL Albumin 4.4 (3.5-5.0) g/dL 03/28/24 Range/Units 12:42 WBC (3.8-10.6) k/uL RBC (3.80-5.40) m/uL Hgb (11.4-16.0) gm/dL Hct (34.0-46.0) % MCV (80.0-100.0) fL MCH (25.0-35.0) pg MCHC (31.0-37.0) g/dL RDW (11.5-15.5) % Plt Count (150-450) k/uL MPV Neutrophils % % Lymphocytes % % Monocytes % % Eosinophils % % Basophils % % Neutrophils # (1.3-7.7) k/uL Lymphocytes # (1.0-4.8) k/uL Monocytes # (0-1.0) k/uL Eosinophils # (0-0.7) k/uL Basophils # (0-0.2) k/uL PT (10.0-12.5) sec INR (<1.2) APTT (22.0-30.0) sec Sodium (137-145) mmol/L Potassium (3.5-5.1) mmol/L Chloride (98-107) mmol/L Carbon Dioxide (22-30) mmol/L Anion Gap mmol/L BUN (7-17) mg/dL Creatinine (0.52-1.04) mg/dL Est GFR (CKD-EPI)AfAm (>60 ml/min/1.73 sqM) Est GFR (CKD-EPI)NonAf (>60 ml/min/1.73 sqM) Glucose (74-99) mg/dL Calcium (8.4-10.2) mg/dL Magnesium (1.6-2.3) mg/dL Total Bilirubin (0.2-1.3) mg/dL AST (14-36) U/L ALT (4-34) U/L Alkaline Phosphatase (38-126) U/L Troponin I <0.012 (0.000-0.034) ng/mL Total Protein (6.3-8.2) g/dL Albumin (3.5-5.0) g/dL Disposition Clinical Impression: Chest pain Disposition: ADMITTED IP TO THIS HOSP Is patient prescribed a controlled substance at d/c from ED?: No Referrals: Tad Patel MD [Primary Care Provider] - 1-2 days Time of Disposition: 13:49
[2024-03-28] MEDS: NITROGLYCERIN OINT 1 INCH/GM PACKET TOPICAL STA (13:00)
[2024-03-28] MEDS: ASPIRIN 81 MG PO STA (13:00)
[2024-03-28 13:06] LABS: Basophils % (A) 0 %; Eosinophils # (A) 0.1 k/uL (0-0.7); Eosinophils % (A) 1 %; HCT 39.4 % (34.0-46.0); HGB 13.7 gm/dL (11.4-16.0); Lymphocytes # (A) 1.1 k/uL (1.0-4.8); Lymphocytes % (A) 13 %; MCHC 34.7 g/dL (31.0-37.0); MCV 92.3 fL (80.0-100.0); Mean Platelet Volume 8.9; Monocytes # (A) 0.4 k/uL (0-1.0); Monocytes % (A) 5 %; Neutrophils # (A) 6.6 k/uL (1.3-7.7); Neutrophils % (A) 78 %; Platelet Count 217 k/uL (150-450); RBC 4.27 m/uL (3.80-5.40); RDW 12.8 % (11.5-15.5); WBC 8.5 k/uL (3.8-10.6)
[2024-03-28 13:17] LABS: ALT 31 U/L (4-34); AST 44 U/L (14-36); African American GFR (CKD) 41 (>60 ml/min/1.73 sqM); Albumin 4.4 g/dL (3.5-5.0); Alkaline Phosphatase 65 U/L (38-126); Anion Gap 8 mmol/L; Blood Urea Nitrogen 30 mg/dL (7-17); Calcium 9.7 mg/dL (8.4-10.2); Carbon Dioxide 26 mmol/L (22-30); Chloride 104 mmol/L (98-107); Glucose 221 mg/dL (74-99); Magnesium 1.2 mg/dL (1.6-2.3); Non-African American GFR(CKD) 36 (>60 ml/min/1.73 sqM); Potassium 4.4 mmol/L (3.5-5.1); Sodium 138 mmol/L (137-145); Total Protein 6.8 g/dL (6.3-8.2)
--- NOTE | 2024-03-28 13:26 | XR ---
EXAMINATION TYPE: XR chest 2V DATE OF EXAM: 03/28/2024 1:22 PM COMPARISON: Chest radiographs from 03/27/2023 TECHNIQUE: XR chest 2V Frontal and lateral views of the chest. CLINICAL INDICATION:Female, 88 years old with history of Chest Pain; FINDINGS: Lungs/Pleura: There is no evidence of pleural effusion, focal consolidation, or pneumothorax. Pulmonary vascularity: Unremarkable. Heart/mediastinum: Cardiomediastinal silhouette is unremarkable. Atherosclerotic calcifications are seen in the aorta. Two lead cardiac conduction device overlying the left hemithorax with lead tips pr ojecting over the right ventricle and right atrium. Musculoskeletal: Multiple level degenerative disc disease changes seen throughout the spine. Calcific tendinosis of the left shoulder redemonstrated. Other: Small hiatal hernia. IMPRESSION: No acute cardiopulmonary disease/process. [facility], , 03/28/2024 1:24 PM
[2024-03-28 13:30] LABS: Partial Thromboplastin Time 22.1 sec (22.0-30.0); Prothrombin Time 10.7 sec (10.0-12.5)
[2024-03-28] MEDS ORDERED: NITROGLYCERIN SL TABS 0.4 MG TAB SUBLINGUAL PRN (13:50)
[2024-03-28] MEDS: MAGNESIUM OXIDE 400 MG TAB PO SCH (14:23)
[2024-03-28] MEDS: MAGNESIUM SULFATE-D5W PMX 1 GM in DEXTROSE/WATER 1 100ML.BAG IVPB ONE (14:24)
[2024-03-28] MEDS ORDERED: DEXTROSE 50% SYRINGE 50 ML IVP PRN ×2 (15:45)
--- NOTE | 2024-03-28 15:50 | P.HPIM ---
History of Present Illness H&P Date: 03/28/24 88 year old F with PMH of HTN, DM, Gout, h/o complete heart block status post pacemaker following Dr. Rodriguez presents to the ED for chest pain. Started after waking up this morning. Described as central chest, pressure like in nature, no radiation, no alleviating or aggravating factors. No history of ND or CVA. Non smoker. No diaphoresis, shortness of breath or palpitations. Symptoms resolved shortly after going to the ED. In the ED she underwent extensive evaluation. BP 158/73, HR 72, T 97.8F, RR 16, 98% on RA. CBC, Coag panel, CMP significant for BUN 30, Cr 1.35, glu 221, AST 44. Mag 1.2. Trop < 0.012. EKG pacemaker rhythm. Patient is admitted for Cardiology evaluation and rule out ACS. General: non toxic, no distress, appears at stated age Derm: warm, dry Head: atraumatic, normocephalic, symmetric Eyes: EOMI, no lid lag, anicteric sclera Mouth: no lip lesion, mucus membranes moist Cardiovascular: S1 S2 reg. No murmurs, rubs, gallops Lungs: Clear to auscultation bilaterally, no accessory muscle use Ext: no gross muscle atrophy, no edema, no contractures Neuro: no focal neuro deficits Psych: Alert, oriented, appropriate affect Based on my assessment of this patient, this patient meets a high complexity level of care. Chest pain: Trend Trop/EKG to rule out ACS. Telemetry monitoring. Recent Echo per patient 2 days ago. ASA 81 mg PO QD. Lipitor 20 mg PO QHS. Metoprolol 50 mg PO QD. Nitro-Bed ointment 0.5 inch TOP Q8H. Cardiology consult. Hypomagnesemia: Mag sulfate 4g IV x 1. DM with hyperglycemia: ISS. Accuchecks ACHS. Hypoglycemic precautions. Transaminitis: Mild elevation. Monitor. Hypertension: Clonidine 0.2 patch QSu. HCTZ 20 mg PO QD. Aldactone 25 mg PO QD. Metoprolol as above. CKD stage IIIB at baseline. Gout: Febuxostat 40 mg PO QD. CODE STATUS: NO CODE. DVT Prophylaxis: Heparin SQ GI Prophylaxis: Designated medical POA if patient is not able to make medical decisions for themselves: I have reviewed the following franchise business consultant notes: ED note. I have reviewed the results of the following tests: As above. I have ordered the following tests: As above. I have discussed the care of this patient with the following independent historian: Family at bedside. I have independently interpreted the following test below: EKG. I have discussed the management of this patient with the following physician: Past Medical History Past Medical History: Asthma, Coronary Artery Disease (CAD), Diabetes Mellitus, GERD/Reflux, Hyperlipidemia, Hypertension, Osteoarthritis (OA) Additional Past Medical History / Comment(s): hx asthma (no current meds), back pain, gout, whole body shakes -? parkinsons, states shakey hands & feet., anemia, urine leakage-wears depends., diverticulitis with bowel resection, hx polyps., states dizziness when she falls., ankle fx History of Any Multi-Drug Resistant Organisms: None Reported Past Surgical History: Bowel Resection, Cholecystectomy Additional Past Surgical History / Comment(s): colon resection for diverticulitis, fistula (stool in urine) ankle fx repair with pin removal later, jocelynn cataract removed Past Anesthesia/Blood Transfusion Reactions: No Reported Reaction Additional Past Anesthesia/Blood Transfusion Reaction / Comment(s): states dizziness when she falls Past Psychological History: Depression Smoking Status: Never smoker Past Alcohol Use History: Rare Past Drug Use History: None Reported - Past Family History Sister(s) Family Medical History: Cancer Additional Family Medical History / Comment(s): 3 sisters with breast cancer Daughter(s) Family Medical History: CVA/TIA Son(s) Additional Family Medical History / Comment(s): son from heart problems Medications and Allergies Home Medications Medication Instructions Recorded Confirmed Type Aspirin EC [Ecotrin Low Dose] 81 mg PO DAILY 07/31/18 03/28/24 History Atorvastatin [Lipitor] 20 mg PO HS 07/31/18 03/28/24 History Febuxostat [Uloric] 40 mg PO DAILY 07/31/18 03/28/24 History Metoprolol Succinate (ER) [Toprol 50 mg PO DAILY 07/31/18 03/28/24 History Xl] Spironolact/Hydrochlorothiazid 1 tab PO DAILY 07/31/18 03/28/24 History [Aldactazide 25-25 MG] cloNIDine 0.2 MG/24HR PATCH 1 patch TRANSDERM ROONEY 07/31/18 03/28/24 History [Catapres-TTS] glipiZIDE [Glucotrol] 10 mg PO AC-BID 07/31/18 03/28/24 History Sertraline [Zoloft] 150 mg PO DAILY 08/20/20 03/28/24 History buPROPion XL [Wellbutrin XL] 300 mg PO DAILY 12/27/21 03/28/24 History Allergies Allergy/AdvReac Type Severity Reaction Status Date / Time Iodine and Iodide Containing Allergy Swelling Verified 03/28/24 14:13 Produc metformin AdvReac Unknown Diarrhea Verified 03/28/24 14:13 hydrocodone AdvReac Nausea & Verified 03/28/24 14:13 Vomiting, headaches naproxen AdvReac Nausea & Verified 03/28/24 14:13 Vomiting Physical Exam Vitals: Vital Signs Temp Pulse Resp BP Pulse Ox 03/28/24 15:04 62 17 151/107 95 03/28/24 12:02 97.8 F 72 16 158/73 98 Intake and Output 03/28/24 03/28/24 03/28/24 06:59 14:59 22:59 Other: Weight 57.606 kg Results CBC & Chem 7: 03/28/24 12:42 03/28/24 12:42 Labs: Abnormal Lab Results - Last 24 Hours (Table) 03/28/24 Range/Units 12:42 BUN 30 H (7-17) mg/dL Creatinine 1.35 H (0.52-1.04) mg/dL Glucose 221 H (74-99) mg/dL Magnesium 1.2 L (1.6-2.3) mg/dL AST 44 H (14-36) U/L
[2024-03-28] MEDS: MAGNESIUM SULFATE-D5W PMX 1 GM in DEXTROSE/WATER 1 100ML.BAG IVPB SCH (16:15)
[2024-03-28 17:30] LABS: Glucose,Whole Blood 240 mg/dL (70-110)
[2024-03-28] MEDS ORDERED: glipiZIDE 10 MG TAB PO SCH (17:30)
[2024-03-28] MEDS: INSULIN ASPART (NovoLOG) 100 UNIT/ML VIAL SQ SCH (17:33)
[2024-03-28] MEDS: NITROGLYCERIN OINT 1 INCH/GM PACKET TOPICAL SCH (18:31)
[2024-03-28] MEDS: ATORVASTATIN 20 MG TAB PO SCH (19:39)
[2024-03-28] MEDS: HEPARIN SODIUM,PORCINE 5,000 UNIT/ML 1 ML VIAL SQ SCH (19:39)
[2024-03-28 20:08] LABS: Glucose,Whole Blood 231 mg/dL (70-110)
[2024-03-29 06:23] LABS: Glucose,Whole Blood 190 mg/dL (70-110)
[2024-03-29 07:49] VITALS: RESP 16; TEMP 97.6
[2024-03-29] MEDS: allopurinoL 100 MG TAB PO SCH (08:57)
[2024-03-29] MEDS: buPROPion XL 300 MG TAB.ER.24H PO SCH (08:57)
[2024-03-29] MEDS: ASPIRIN 81 MG PO SCH (08:57)
[2024-03-29] MEDS: SERTRALINE 50 MG TAB PO SCH (08:57)
[2024-03-29] MEDS: SPIRONOLACTONE-HCTZ 25-25MG 1 EACH TAB PO SCH (08:58)
[2024-03-29] MEDS ORDERED: ASPIRIN 325 MG TAB PO SCH (09:00)
[2024-03-29 09:11] LABS: LDL Cholesterol,Calculated 85.8 mg/dL (0.0-131.0)
[2024-03-29] MEDS: METOPROLOL SUCCINATE (ER) 50 MG TAB.ER.24H PO SCH (11:12)
[2024-03-29 11:16] VITALS: BP 120/71; PULSE 60
[2024-03-29 12:05] LABS: Glucose,Whole Blood 169 mg/dL (70-110)
[2024-03-29 12:25] LABS: African American GFR (CKD) 52 (>60 ml/min/1.73 sqM); Anion Gap 8 mmol/L; Blood Urea Nitrogen 25 mg/dL (7-17); Calcium 9.3 mg/dL (8.4-10.2); Carbon Dioxide 28 mmol/L (22-30); Chloride 101 mmol/L (98-107); Glucose 190 mg/dL (74-99); Magnesium 2.2 mg/dL (1.6-2.3); Non-African American GFR(CKD) 45 (>60 ml/min/1.73 sqM); Potassium 4.3 mmol/L (3.5-5.1); Sodium 137 mmol/L (137-145)
--- NOTE | 2024-03-29 15:01 | P.DS ---
Providers Date of admission: 03/28/24 13:51 Expected date of discharge: 03/29/24 Attending physician: Marcelo Hansen Consults: 03/28/24 13:50 Consult Physician Urgent Consulting Provider: Sher Blankenship Consult Reason/Comments: cp Do you want consulting provider notified?: Yes Primary care physician: [facility] Course: 88 year old F with PMH of HTN, DM, Gout, h/o complete heart block status post pacemaker following Dr. Rodriguez presents to the ED for chest pain. Started after waking up this morning. Described as central chest, pressure like in nature, no radiation, no alleviating or aggravating factors. No history of OR or CVA. Non smoker. No diaphoresis, shortness of breath or palpitations. Symptoms resolved shortly after going to the ED. In the ED she underwent extensive evaluation. BP 158/73, HR 72, T 97.8F, RR 16, 98% on RA. CBC, Coag panel, CMP significant for BUN 30, Cr 1.35, glu 221, AST 44. Mag 1.2. Trop < 0.012. EKG pacemaker rhythm. Patient is admitted for Cardiology evaluation and rule out ACS. Troponins trended and negative. 03/29 Patient was seen and examined. No chest pain. Discussed with Dr. Esparza, cleared for discharge with outpatient follow up. Continue home medications and follow up with PCP within 1-2 days and Cardiology within 1 week of discharge. General: non toxic, no distress, appears at stated age Derm: warm, dry Head: atraumatic, normocephalic, symmetric Eyes: EOMI, no lid lag, anicteric sclera Mouth: no lip lesion, mucus membranes moist Cardiovascular: S1 S2 reg. No murmurs, rubs, gallops Lungs: Clear to auscultation bilaterally, no accessory muscle use Ext: no gross muscle atrophy, no edema, no contractures Neuro: no focal neuro deficits Psych: Alert, oriented, appropriate affect Discharge Diagnosis: Chest pain Hypomagnesemia DM with hyperglycemia Transaminitis Hypertension CKD stage IIIB at baseline Gout This complex discharge took 35 minutes to complete. Patient Condition at Discharge: Stable Plan - Discharge Summary New Discharge Prescriptions: Continue Spironolact/Hydrochlorothiazid [Aldactazide 25-25 MG] 1 tab PO DAILY Aspirin EC [Ecotrin Low Dose] 81 mg PO DAILY Metoprolol Succinate (ER) [Toprol XL] 50 mg PO DAILY Febuxostat [Uloric] 40 mg PO DAILY glipiZIDE [Glucotrol] 10 mg PO AC-BID cloNIDine 0.2 MG/24HR PATCH [Catapres-TTS] 1 patch TRANSDERM ROONEY Atorvastatin [Lipitor] 20 mg PO HS Sertraline [Zoloft] 150 mg PO DAILY buPROPion XL [Wellbutrin XL] 300 mg PO DAILY Discharge Medication List Aspirin EC [Ecotrin Low Dose] 81 mg PO DAILY 07/31/18 [History] Atorvastatin [Lipitor] 20 mg PO HS 07/31/18 [History] Febuxostat [Uloric] 40 mg PO DAILY 07/31/18 [History] Metoprolol Succinate (ER) [Toprol XL] 50 mg PO DAILY 07/31/18 [History] Spironolact/Hydrochlorothiazid [Aldactazide 25-25 MG] 1 tab PO DAILY 07/31/18 [History] cloNIDine 0.2 MG/24HR PATCH [Catapres-TTS] 1 patch TRANSDERM ROONEY 07/31/18 [History] glipiZIDE [Glucotrol] 10 mg PO AC-BID 07/31/18 [History] Sertraline [Zoloft] 150 mg PO DAILY 08/20/20 [History] buPROPion XL [Wellbutrin XL] 300 mg PO DAILY 12/27/21 [History] Follow up Appointment(s)/Referral(s): Tad Patel MD [Primary Care Provider] - 1-2 days Andrade Rodriguez DO [STAFF PHYSICIAN] - 1 Week Activity/Diet/Wound Care/Special Instructions: Diet: Cardiac Discharge Disposition: HOME SELF-CARE
--- NOTE | 2024-03-29 17:16 | P.CRDCN ---
History of Present Illness Consult date: 03/29/24 History of present illness: HISTORY OF PRESENTING ILLNESS 88-year-old female with past medical history of hypertension, type 2 diabetes, gout, history of complete heart block status post PPM known to Dr. Rodriguez. She presented to the ER because of symptoms of substernal chest pressure. Patient reports that she has a visiting nurse who noticed that she was having so me heaviness in her chest after she woke up due to which she informed her primary care physician who instructed her to come to the ER. Since she has been in the hospital she has not had any substernal chest pressure or shortness of breath. Her initial workup including troponin x 3 were negative. ECG showed AV paced rhythm with no active concerns of ischemia. Chest x-ray does not show any signs of pulmonary congestion consistent with current clinical CHF exacerbation. REVIEW OF SYSTEMS 14 point review of system is negative except what is mentioned above in HPI. PHYSICAL EXAMINATION Vital signs reviewed. Head: Normocephalic. Eyes: Sclerae nonicteric. Neck: Brisk carotid upstroke, no jugular venous distention. Lungs: Clear to auscultation. Heart: Regular rate and rhythm, S1-S2, no S3, no murmur or rub. Abdomen: Soft nontender, positive bowel sounds. Extremities: No edema, intact distal pulses. Neuro: Alert, oritented, no focal deficits. Detailed neuro exam was not performed. ASSESSMENT Atypical chest pain, rule out of acute coronary syndrome History of complete heart block status post PPM, PPM sensing and capturing appropriately on twelve-lead ECG Hypomagnesemia Transaminitis, hypertension CKD Gout Debility and frailty PLAN She has been rule out of acute coronary syndrome. She does not have any signs of clinical CHF. She does not have any cardiac arrhythmias at this time. She is chest pain-free. She is hemodynamically stable. Continue her current cardiac medication without any changes. I would recommend that patient follows up with Dr. Rodriguez on outpatient basis to see if patient would benefit from a cardiac stress test. Patient reports that she recently had a echocardiogram in the clinic. Lan Esparza MD, FACC, RPVI Thank you for allowing [facility] to participate in this patient's care. Feel free to reach out in case of any followup questions. Past Medical History Past Medical History: Asthma, Coronary Artery Disease (CAD), Diabetes Mellitus, GERD/Reflux, Hyperlipidemia, Hypertension, Osteoarthritis (OA) Additional Past Medical History / Comment(s): hx asthma (no current meds), back pain, gout, whole body shakes -? parkinsons, states shakey hands & feet., anemia, urine leakage-wears depends., diverticulitis with bowel resection, hx polyps., states dizziness when she falls., ankle fx History of Any Multi-Drug Resistant Organisms: None Reported Past Surgical History: Bowel Resection, Cholecystectomy Additional Past Surgical History / Comment(s): colon resection for d iverticulitis, fistula (stool in urine) ankle fx repair with pin removal later, jocelynn cataract removed Past Anesthesia/Blood Transfusion Reactions: No Reported Reaction Additional Past Anesthesia/Blood Transfusion Reaction / Comment(s): states dizziness when she falls Past Psychological History: Depression Smoking Status: Never smoker Past Alcohol Use History: Rare Past Drug Use History: None Reported - Past Family History Sister(s) Family Medical History: Cancer Additional Family Medical History / Comment(s): 3 sisters with breast cancer Daughter(s) Family Medical History: CVA/TIA Son(s) Additional Family Medical History / Comment(s): son from heart problems Medications and Allergies Home Medications Medication Instructions Recorded Confirmed Type Aspirin EC [Ecotrin Low Dose] 81 mg PO DAILY 07/31/18 03/28/24 History Atorvastatin [Lipitor] 20 mg PO HS 07/31/18 03/28/24 History Febuxostat [Uloric] 40 mg PO DAILY 07/31/18 03/28/24 History Metoprolol Succinate (ER) [Toprol 50 mg PO DAILY 07/31/18 03/28/24 History XL] Spironolact/Hydrochlorothiazid 1 tab PO DAILY 07/31/18 03/28/24 History [Aldactazide 25-25 MG] cloNIDine 0.2 MG/24HR PATCH 1 patch TRANSDERM ROONEY 07/31/18 03/28/24 History [Catapres-TTS] glipiZIDE [Glucotrol] 10 mg PO AC-BID 07/31/18 03/28/24 History Sertraline [Zoloft] 150 mg PO DAILY 08/20/20 03/28/24 History buPROPion XL [Wellbutrin XL] 300 mg PO DAILY 12/27/21 03/28/24 History Allergies Allergy/AdvReac Type Severity Reaction Status Date / Time Iodine and Iodide Containing Allergy Swelling Verified 03/28/24 14:13 Produc metformin AdvReac Unknown Diarrhea Verified 03/28/24 14:13 hydrocodone AdvReac Nausea & Verified 03/28/24 14:13 Vomiting, headaches naproxen AdvReac Nausea & Verified 03/28/24 14:13 Vomiting Physical Exam Vitals: Vital Signs Temp Pulse Resp BP Pulse Ox 03/29/24 11:15 60 16 120/71 95 03/29/24 07:46 97.6 F 61 16 122/73 96 03/29/24 04:00 60 18 119/58 97 03/29/24 01:44 18 03/29/24 00:00 62 18 109/50 95 03/28/24 20:00 98.0 F 60 18 115/52 95 Intake and Output 03/29/24 03/29/24 03/29/24 06:59 14:59 22:59 Intake Total 150 Output Total 1400 100 Balance -1400 50 Intake: Oral 150 Output: Urine 1400 100 Straight 700 Other: Voiding Method External Catheter # Voids 2 # Bowel Movements 2 Weight 61.3 kg Results 03/28/24 12:42 03/29/24 11:31 Cardiac Enzymes 03/28/24 03/28/24 Range/Units 16:38 18:27 Troponin I <0.012 <0.012 (0.000-0.034) ng/mL Lipids 03/28/24 Range/Units 12:42 Triglycerides 178.00 H (0.00-149.00) mg/dL Cholesterol 170.00 (0.00-200.00) mg/dL HDL Cholesterol 48.60 (40.00-60.00) mg/dL Cholesterol/HDL Ratio 3.50 Ratio Comprehensive Metabolic Panel 03/29/24 Range/Units 11:31 Sodium 137 (137-145) mmol/L Potassium 4.3 (3.5-5.1) mmol/L Chloride 101 (98-107) mmol/L Carbon Dioxide 28 (22-30) mmol/L BUN 25 H (7-17) mg/dL Creatinine 1.11 H (0.52-1.04) mg/dL Glucose 190 H (74-99) mg/dL Calcium 9.3 (8.4-10.2) mg/dL Intake and Output 10/06/1003/29/24 03/29/24 06:59 14:59 22:59 Intake Total 150 Output Total 1400 100 Balance -1400 50 Intake: Oral 150 Output: Urine 1400 100 Straight 700 Other: Voiding Method External Catheter # Voids 2 # Bowel Movements 2 Weight 61.3 kg 03/28/24 12:42 03/29/24 11:31
[2024-03-30] MEDS ORDERED: cloNIDine 0.2 MG/24HR PATCH TRANSDERM SCH (09:00)
== END 2024-03-29 15:47 | disposition home or self-care (01) | DRG 313 ==
LOC: EC 12:00 → 3SCARD 13:51
PROVIDERS: ADMIT Student in an Organized Health Care Education/Training Program; ATTEND Student in an Organized Health Care Education/Training Program
DX: R07.89 Other chest pain (principal); M10.9 Gout, unspecified; Z95.0 Presence of cardiac pacemaker; E11.22 Type 2 diabetes mellitus with diabetic chronic kidney disease; N18.32 Chronic kidney disease, stage 3b; E78.5 Hyperlipidemia, unspecified; I12.9 Hypertensive chronic kidney disease with stage 1 through stage 4 chronic kidney disease, or unspecified chronic kidney disease; I25.10 Atherosclerotic heart disease of native coronary artery without angina pectoris; E83.42 Hypomagnesemia; J45.909 Unspecified asthma, uncomplicated; E11.65 Type 2 diabetes mellitus with hyperglycemia; F32.A Depression, unspecified; Z79.82 Long term (current) use of aspirin; Z79.84 Long term (current) use of oral hypoglycemic drugs; Z79.899 Other long term (current) drug therapy
CPT/HCPCS: 36415; 71046; 80048; 80053; 80061; 83735; 84484; 85025; 85610; 85730; 93005; 96365; 96366; 99285

== ENCOUNTER 2024-04-08 07:26 | Day surgery (SDC) | payer MEDICARE ==
[~2024-04-08 07:26] MED LIST changes: -DEXAMETHASONE SOD PHOSPHATE 4 MG/ML 1 ML VIAL IV ONE; -ONDANSETRON 4 MG/2 ML VIAL IVP ONE; +ONDANSETRON 4 MG/2 ML VIAL IVP PRN
[2024-04-08 08:15] VITALS: RESP 16; TEMP 97
[2024-04-08 08:16] LABS: Glucose,Whole Blood 243 mg/dL (70-110)
[2024-04-08] MEDS: INSULIN ASPART (NovoLOG) 100 UNIT/ML VIAL SQ ONE (08:16)
[2024-04-08] MEDS: IV FLUID CONTINUATION 1,000 ML IV ONE (08:17)
[2024-04-08] MEDS ORDERED: LIDOCAINE 1% INJ 10MG/ML (20 ML MDV) ONE (08:50)
[2024-04-08] MEDS ORDERED: PROPOFOL 10 MG/ML 20 ML VIAL IV ONE (08:50)
--- NOTE | 2024-04-08 09:25 | P.PCN ---
Date of Procedure: 04/08/24 Procedure(s) Performed: BRIEF HISTORY: Patient is a 88-year-old, pleasant, white female scheduled for an upper endoscopy as a part of evaluation of upper abdominal pain, GERD/intermittent nausea vomiting for the last several months duration.. PROCEDURE PERFORMED: Esophagogastroduodenoscopy with biopsy. PREOPERATIVE DIAGNOSIS: GERD/intermittent nausea vomiting and abdominal pain. IV sedation per anesthesia. PROCEDURE: After informed consent was obtained, the patient was brought into the endoscopy unit. IV sedation was administered by Anesthesia under continuous monitoring. Initially the Olympus GIF-140 video endoscope was inserted into the mouth. Esophagus intubated without any difficulty. It was gradually advanced into the stomach and duodenum and carefully examined. The bulb and the second part of the duodenum appeared normal. The scope at this time was withdrawn to the stomach, adequately insufflated with air, and upon careful examination, mucosa of the antrum, mild diffuse gastritis with mucosal erythema and friability and biopsies were done from this area. Mucosa body, cardia and the fundus appeared normal. The scope was then withdrawn into the esophagus. Moderate size hiatal hernia noted. The GE junction was located at 32 cm from the incisors. Widely patent distal esophageal Schatzki's ring identified. The esophagus appeared normal. There were no erosions or ulcerations seen and the patient tolerated the procedure well. IMPRESSION: 1. Small to moderate-sized hiatal hernia. 2. Widely patent distal esophageal Schatzki's ring 3. Diffuse antral gastritis. RECOMMENDATIONS: The findings of this examination were discussed with the patient as well as her family. She was advised to follow-up with the biopsy results. Continue with current medications and follow antireflux measures. Follow-up in the office in 2 weeks.
[2024-04-08 09:36] VITALS: BP 119/65; PULSE 62
== END 2024-04-08 10:15 | disposition home or self-care (01) ==
LOC: ORWHC2ENDO 07:26
PROVIDERS: ATTEND Internal Medicine Gastroenterology
CPT/HCPCS: 43239; 88305